=== PATIENT | female | born 1945 | race Caucasian/White ===

== ENCOUNTER 2018-07-01 12:35 | Observation (INO) ==
--- NOTE | 2018-07-01 13:37 | Emergency Department Note ---
Disposition Clinical Impression: Weakness, Gangrene Disposition: Admitted As Inpatient Condition: Undetermined Referrals: Brody Gorman DO [Primary Care Provider] - Forms: ED Satisfaction Letter Time of Disposition: 17:14 General Adult HPI - General Chief complaint: ED Extremity Injury, Lower Stated complaint: bilat leg pain, L foot swelling/discoloration Time Seen by Provider: 07/01/18 13:06 Source: patient Mode of arrival: wheelchair Limitations: no limitations Nursing Notes Reviewed: Yes Vital Signs Reviewed: Yes - History of Present Illness HPI Narrative: 73-year-old female arrives to the emergency department with generalized weakness, bilateral lower extremity pain and left lower extremity discoloration. The patient has been complaining of pain all over over the course of the past few weeks and unable to care for herself at home with family. Family is having difficult time taking care of her as been unable to care for her to the point where they brought her in for evaluation. This morning the patient started experiencing discoloration of her left foot and turned purple in color. The patient does have palpable pulses in bilateral feet and dorsalis pedis but they are weak on the left and 1 over 2 whereas the right is 2 over 2. Patient still has capillary refill. Patient was being treated for cancer in the lungs where she finished her last chemotherapy roughly 4 weeks ago. She has not had a follow-up appointment since then. No noted fevers or chills. Patient denies any other complaints at this time. Patient continues to smoke at home and at apparently is the only time that she gets out of her chair. Pain Scale: 8 - Related Data Home Medications Medication Instructions Recorded Confirmed HYDROcodone/Acet 5/325 mg mg PO TID 03/08/18 Allergies Allergy/AdvReac Type Severity Reaction Status Date / Time No Known Allergies Allergy Verified 03/08/18 10:03 All systems ED: reviewed and negative except as stated. Constitutional: Reports: weakness. Denies: fever, chills Eyes: Denies: vision change ENT ED: Denies: dysphagia Cardiovascular: Denies: chest pain Respiratory: Reports: cough. Denies: dyspnea, sputum production Gastrointestinal: Denies: abdominal pain, nausea, vomiting Genitourinary: Denies: urgency, dysuria Musculoskeletal: Reports: myalgia. Denies: back pain, neck pain, arthralgia Integumentary: Reports: lesions. Denies: rash Neurological: Reports: weakness. Denies: headache, numbness, paresthesias, confusion Past Medical History - Past Medical History Attestation: Yes The following information was validated with the patient. Source: patient, old records reviewed Medical history: Reports: arthritis, cancer, diabetes, hyperlipidemia, osteoporosis Surgical history: Reports: cholecystectomy Psychiatric history: Reports: no psych history - Social History Smoking Status: Current every day smoker Smokeless Tobacco Status: No Alcohol use: Reports: none Drug use: Reports: none Physical Exam - General Limitations: no limitations General appearance: alert, in no apparent distress - Head Head exam: atraumatic, normocephalic, normal inspection - Eye Eye exam: Present: normal appearance, PERRL, EOMI - ENT ENT exam: normal exam, normal oropharynx, mucous membranes moist - Neck Neck exam: Present: normal inspection, full ROM, trachea midline - Chest Chest inspection: Present: normal inspection, symmetric chest wall rise - Respiratory Respiratory exam: Present: other (coarse breath sounds) - Cardiovascular Cardiovascular exam: Present: regular rate, normal rhythm, normal heart sounds - Abdominal Exam Abdominal exam: Present: soft, Non-Tender. Absent: tenderness, distention, guarding, rebound, rigidity - Extremities Exam Extremities exam: Present: full ROM, tenderness (left foot primarily but radiating proximally to left politeal region) - Expanded Lower Extremity Exam Foot/toe exam: Present: other (Patient appears to have wet gangrene/ulceration to left fifth toe. In between fifth and fourth toes. There is some purulent discharge and is in this area as well with a black discoloration on the medial aspect of this. Capillary refill less than 2 seconds. Overall purple discoloration to the left foot when compared to the right) - Neurological Exam Neurological exam: Present: alert, oriented X3, CN II-XII intact - Expanded Neurological Exam Patient oriented to: Present: person, place, time Speech: Present: fluid speech Cranial nerves: EOM function (II, III, IV, ): Normal, facial sensation (V): Normal, facial palsy (VII): Normal Motor strength - LUE: 4/5 Motor strength - RUE: 4/5 Motor strength - LLE: 3/5 Motor strength - RLE: 3/5 Sensory exam upper extremity: light touch: Normal Sensory exam lower extremity: light touch: Normal Coma Scale Eye Opening: Spontaneous Coma Scale Motor Response: Obeys Commands Coma Scale Verbal Response: Oriented Coma Scale Total: 15 - Skin Skin exam: Present: warm Course Vital Signs Temperature 97.9 F 07/01/18 12:45 Pulse Rate 90 07/01/18 12:45 Respiratory Rate 14 07/01/18 12:45 Blood Pressure 149/80 07/01/18 12:45 O2 Sat by Pulse Oximetry 92 07/01/18 12:45 Temperature 97.9 F 07/01/18 12:45 Pulse Rate 75 07/01/18 16:47 Respiratory Rate 18 07/01/18 16:47 Blood Pressure 135/62 07/01/18 16:47 O2 Sat by Pulse Oximetry 91 07/01/18 16:47 Oxygen Delivery Oxygen Delivery Room Air Medical Decision Making - MDM Narrative Medical decision making narrative: Patient's workup in the emergency department demonstrates findings concerning for mucous plugging of the lungs. Mass within the lung has decreased in size since patient received chemotherapy. Patient was also noted to have what germán ears to be possible gangrene of the left fifth toe. This appears discharge in this area and discoloration. The patient was started on vancomycin and Zosyn secondary to signs of infection. The patient had ABIs which demonstrated no acute process but the patient does have reduced disease at 0.85 and 0.80 respectively. Patient was also noted to have no DVTs of bilateral lower extremities. CTA of the patient's chest shows no embolic disease. The patient will be admitted to the hospital this time for further evaluation. Accepted by Dr. Marks. - Lab Data Lab results reviewed: Yes I reviewed the patient's lab results. Result diagrams: 07/01/18 13:57 07/01/18 13:57 Lab Results 07/01/18 07/01/18 07/01/18 Range/Units 13:50 13:57 13:57 WBC 6.4 (4.3-11.1) K/mcL RBC 3.96 (3.82-4.97) M/mcL Hgb 10.5 L (11.5-15.4) g/dL Hct 34.1 L (35.3-44.9) % MCV 86.1 (83.0-100.0) fL MCH 26.5 L (28.0-33.3) pg MCHC 30.8 L (31.6-35.5) g/dL RDW 17.6 H (11.5-14.5) % Plt Count 344 (140-400) K/mcL MPV 9.0 L (9.4-12.4) fL Immature Gran % 0.3 (0-4) % Seg Neutrophils % 75.7 % Lymphocytes % 12.0 % Monocytes % 8.9 % Eosinophils % 2.2 % Basophils % 0.9 % Neutrophils # 4.9 (1.6-8.9) K/mcL Lymphocytes # 0.8 (0.6-4.6) K/mcL Monocytes # 0.6 (0.0-1.3) K/mcL Eosinophils # 0.1 (0.0-0.6) K/mcL Basophils # 0.1 (0.0-0.2) K/mcL D-Dimer (0-500) ng/mLFEU Sodium 131 L (136-145) mEq/L Potassium 4.8 (3.5-5.1) mEq/L Chloride 99 (98-107) mEq/L Carbon Dioxide 26 (23-29) mEq/L BUN 13 (8-23) mg/dL Creatinine 0.56 L (0.60-1.20) mg/dL Est GFR ( Amer) > 60 (> 60) Est GFR (Non-Af Amer) > 60 (> 60) BUN/Creatinine Ratio 23 (6-26) Glucose 101 (70-105) mg/dL Calculated Osmolality 272 L (280-300) Lactic Acid 0.8 (0.5-2.2) mmol/L Calcium 9.3 (8.6-10.3) mg/dL Total Bilirubin 0.4 (0.3-1.0) mg/dL Direct Bilirubin 0.1 (0.0-0.2) mg/dL Indirect Bilirubin 0.3 (0.0-1.2) mg/dL AST 15 (13-39) Units/L ALT 9 (7-52) Units/L Alkaline Phosphatase 68 (34-104) Units/L Troponin I < 0.03 (< 0.04) ng/mL Serum Total Protein 7.0 (6.4-8.9) g/dL Albumin 3.9 (3.5-5.7) g/dL Globulin 3.1 (2.4-3.5) g/dL Albumin/Globulin Ratio 1.3 (1.1-2.2) Urine Color (Yellow) Urine Clarity (Clear) Urine pH (5.0-8.0) pH Units Ur Specific [place] (1.010-1.025) Urine Protein (Neg-Trace) mg/dL Urine Glucose (UA) (Normal) mg/dL Urine Ketones (Negative) mg/dL Urine Blood (Negative) Urine Nitrite (Negative) Urine Bilirubin (Negative) Urine Urobilinogen (Normal) mg/dL Ur Leukocyte Esterase (Negative) Urine Microscopic RBC (0-3) per hpf Urine Microscopic WBC (0-3) per hpf Ur Squamous Epith Cells (None-Few) per lpf Urine Bacteria (None-Few) per hpf Hyaline Casts (None-Few) per lpf Ur Culture Indicated? (NO) 07/01/18 07/01/18 Range/Units 13:57 16:51 WBC (4.3-11.1) K/mcL RBC (3.82-4.97) M/mcL Hgb (11.5-15.4) g/dL Hct (35.3-44.9) % MCV (83.0-100.0) fL MCH (28.0-33.3) pg MCHC (31.6-35.5) g/dL RDW (11.5-14.5) % Plt Count (140-400) K/mcL MPV (9.4-12.4) fL Immature Gran % (0-4) % Seg Neutrophils % % Lymphocytes % % Monocytes % % Eosinophils % % Basophils % % Neutrophils # (1.6-8.9) K/mcL Lymphocytes # (0.6-4.6) K/mcL Monocytes # (0.0-1.3) K/mcL Eosinophils # (0.0-0.6) K/mcL Basophils # (0.0-0.2) K/mcL D-Dimer 1276 H (0-500) ng/mLFEU Sodium (136-145) mEq/L Potassium (3.5-5.1) mEq/L Chloride (98-107) mEq/L Carbon Dioxide (23-29) mEq/L BUN (8-23) mg/dL Creatinine (0.60-1.20) mg/dL Est GFR ( Amer) (> 60) Est GFR (Non-Af Amer) (> 60) BUN/Creatinine Ratio (6-26) Glucose (70-105) mg/dL Calculated Osmolality (280-300) Lactic Acid (0.5-2.2) mmol/L Calcium (8.6-10.3) mg/dL Total Bilirubin (0.3-1.0) mg/dL Direct Bilirubin (0.0-0.2) mg/dL Indirect Bilirubin (0.0-1.2) mg/dL AST (13-39) Units/L ALT (7-52) Units/L Alkaline Phosphatase (34-104) Units/L Troponin I (< 0.04) ng/mL Serum Total Protein (6.4-8.9) g/dL Albumin (3.5-5.7) g/dL Globulin (2.4-3.5) g/dL Albumin/Globulin Ratio (1.1-2.2) Urine Color Yellow (Yellow) Urine Clarity Clear (Clear) Urine pH 6.5 (5.0-8.0) pH Units Ur Specific [place] 1.028 H (1.010-1.025) Urine Protein Negative (Neg-Trace) mg/dL Urine Glucose (UA) Normal (Normal) mg/dL Urine Ketones Negative (Negative) mg/dL Urine Blood Negative (Negative) Urine Nitrite Negative (Negative) Urine Bilirubin Negative (Negative) Urine Urobilinogen Normal (Normal) mg/dL Ur Leukocyte Esterase Moderate H (Negative) Urine Microscopic RBC 0-3 (0-3) per hpf Urine Microscopic WBC 15-30 H (0-3) per hpf Ur Squamous Epith Cells Many H (None-Few) per lpf Urine Bacteria None Seen (None-Few) per hpf Hyaline Casts None Seen (None-Few) per lpf Ur Culture Indicated? NO. A (NO) - Radiology Data Radiology results reviewed: Yes I reviewed the patient's radiology results. Chest X-Ray 07/01/18 13:19 IMPRESSION: The left upper lobe mass has decreased in size since the prior exam. No evidence of edema or pneumonia. D/ / 07/01/2018 14:10:45 Erick Gutierrez MD / Jeana Mendoza Interpreting Provider: Erick Gutierrez MD Chest CTA 07/01/18 14:37 IMPRESSION: 1. Negative for pulmonary embolic disease. 2. The left upper lobe nodule has decreased in size since the PET-CT. 3. Increased right middle and lower lobe mucous plugging. 4. Progressed compression deformities at T12 and L1. D/ / 07/01/2018 16:43:49 Erick Gutierrez MD / windy Interpreting Provider: Erick Gutierrez MD - EKG Data EKG #1 EKG attestation: Yes I reviewed and interpreted this EKG. EKG results narrative: Heart rate 79 beats for minute. Normal sinus rhythm. No ST elevation or ST depression noted. No acute changes noted.
[2018-07-01 14:16] LABS: Basophils # 0.1 K/mcL (0.0-0.2); Basophils % 0.9 %; Eosinophils # 0.1 K/mcL (0.0-0.6); Eosinophils % 2.2 %; Hematocrit 34.1 % (35.3-44.9); Hemoglobin 10.5 g/dL (11.5-15.4); Immature Granulocytes % 0.3 % (0-4); Lymphocytes # 0.8 K/mcL (0.6-4.6); Mean Corpuscular HGB Conc 30.8 g/dL (31.6-35.5); Mean Corpuscular Hemoglobin 26.5 pg (28.0-33.3); Mean Corpuscular Volume 86.1 fL (83.0-100.0); Monocytes # 0.6 K/mcL (0.0-1.3); Monocytes % 8.9 %; Neutrophils # 4.9 K/mcL (1.6-8.9); Platelet Count 344 K/mcL (140-400); Red Blood Count 3.96 M/mcL (3.82-4.97); Red Cell Distribution Width 17.6 % (11.5-14.5); Segmented Neutrophils % 75.7 %
[2018-07-01 14:33] LABS: Troponin I < 0.03 ng/mL (< 0.04)
[2018-07-01 14:34] LABS: Alanine Aminotransferase 9 Units/L (7-52); Albumin 3.9 g/dL (3.5-5.7); Albumin/Globulin Ratio 1.3 (1.1-2.2); Alkaline Phosphatase 68 Units/L (34-104); Aspartate Amino Transferase 15 Units/L (13-39); BUN/Creatinine Ratio 23 (6-26); Bilirubin,Direct 0.1 mg/dL (0.0-0.2); Bilirubin,Indirect 0.3 mg/dL (0.0-1.2); Bilirubin,Total 0.4 mg/dL (0.3-1.0); Blood Urea Nitrogen 13 mg/dL (8-23); Calcium 9.3 mg/dL (8.6-10.3); Carbon Dioxide 26 mEq/L (23-29); Chloride 99 mEq/L (98-107); Globulin 3.1 g/dL (2.4-3.5); Glucose 101 mg/dL (70-105); Osmolality,Calculated 272 (280-300); Potassium 4.8 mEq/L (3.5-5.1); Sodium 131 mEq/L (136-145); eGFR For Non-African Americans > 60 (> 60)
[2018-07-01] MEDS ORDERED: Isovue-370 500 ML BOTTLE IVP ONE (14:37)
[2018-07-01] MEDS ORDERED: 0.9 % Sodium Chloride 1,000 ML IVC ONE (14:37)
[2018-07-01] MEDS ORDERED: Cefepime HCl 1,000 MG in Water for inj. (sterile) 20 ML 10 ML IVP STA (16:01)
[2018-07-01 17:00] LABS: Bilirubin,Urine Negative (Negative); Blood,Urine Negative (Negative); Clarity,Urine Clear (Clear); Color,Urine Yellow (Yellow); Glucose,Urine (UA) Normal (Normal); Ketones,Urine Negative (Negative); Leukocyte Esterase,Urine Moderate (Negative); Nitrite,Urine Negative (Negative); PH,Urine 6.5 pH Units (5.0-8.0); Protein,Urine Negative (Neg-Trace); Specific Gravity,Urine 1.028 (1.010-1.025); Urobilinogen,Urine Normal (Normal)
[2018-07-01 17:01] LABS: Bacteria,Urine None Seen per hpf (None-Few); Hyaline Casts,Urine None Seen per lpf (None-Few); RBC,Urine 0-3 per hpf (0-3); Squamous Epithelial Cell,Urine Many per lpf (None-Few); WBC,Urine 15-30 per hpf (0-3)
--- NOTE | 2018-07-01 17:08 | Emergency Department Note ---
Disposition Clinical Impression: Weakness, Gangrene Disposition: Admitted As Inpatient Condition: Good Referrals: Brody Gorman DO [Primary Care Provider] - Forms: ED Satisfaction Letter General Adult HPI - General Chief complaint: ED Extremity Injury, Lower Stated complaint: bilat leg pain, L foot swelling/discoloration Time Seen by Provider: 07/01/18 13:06 Source: patient Mode of arrival: wheelchair Limitations: no limitations - History of Present Illness Pain Scale: 8 - Related Data Home Medications Medication Instructions Recorded Confirmed HYDROcodone/Acet 5/325 mg mg PO TID 03/08/18 Allergies Allergy/AdvReac Type Severity Reaction Status Date / Time No Known Allergies Allergy Verified 03/08/18 10:03 Constitutional: Reports: weakness. Denies: fever, chills Eyes: Denies: vision change ENT ED: Denies: dysphagia Cardiovascular: Denies: chest pain Respiratory: Reports: cough. Denies: dyspnea, sputum production Gastrointestinal: Denies: abdominal pain, nausea, vomiting Genitourinary: Denies: urgency, dysuria Musculoskeletal: Reports: myalgia. Denies: back pain, neck pain, arthralgia Integumentary: Reports: lesions. Denies: rash Neurological: Reports: weakness. Denies: headache, numbness, paresthesias, confusion Past Medical History - Past Medical History Medical history: Reports: arthritis, cancer, diabetes, hyperlipidemia, osteoporosis Surgical history: Reports: cholecystectomy Psychiatric history: Reports: no psych history - Social History Smoking Status: Current every day smoker Smokeless Tobacco Status: No Alcohol use: Reports: none Drug use: Reports: none Physical Exam - General Limitations: no limitations General appearance: alert, in no apparent distress Course Vital Signs Temperature 97.9 F 07/01/18 12:45 Pulse Rate 90 07/01/18 12:45 Respiratory Rate 14 07/01/18 12:45 Blood Pressure 149/80 07/01/18 12:45 O2 Sat by Pulse Oximetry 92 07/01/18 12:45 Temperature 97.9 F 07/01/18 12:45 Pulse Rate 75 07/01/18 16:47 Respiratory Rate 18 07/01/18 16:47 Blood Pressure 135/62 07/01/18 16:47 O2 Sat by Pulse Oximetry 91 07/01/18 16:47 Oxygen Delivery Oxygen Delivery Room Air Medical Decision Making - Lab Data Result diagrams: 07/01/18 13:57 02/17/19 13:57 Lab Results 07/01/18 07/01/18 07/01/18 Range/Units 13:50 13:57 13:57 WBC 6.4 (4.3-11.1) K/mcL RBC 3.96 (3.82-4.97) M/mcL Hgb 10.5 L (11.5-15.4) g/dL Hct 34.1 L (35.3-44.9) % MCV 86.1 (83.0-100.0) fL MCH 26.5 L (28.0-33.3) pg MCHC 30.8 L (31.6-35.5) g/dL RDW 17.6 H (11.5-14.5) % Plt Count 344 (140-400) K/mcL MPV 9.0 L (9.4-12.4) fL Immature Gran % 0.3 (0-4) % Seg Neutrophils % 75.7 % Lymphocytes % 12.0 % Monocytes % 8.9 % Eosinophils % 2.2 % Basophils % 0.9 % Neutrophils # 4.9 (1.6-8.9) K/mcL Lymphocytes # 0.8 (0.6-4.6) K/mcL Monocytes # 0.6 (0.0-1.3) K/mcL Eosinophils # 0.1 (0.0-0.6) K/mcL Basophils # 0.1 (0.0-0.2) K/mcL D-Dimer (0-500) ng/mLFEU Sodium 131 L (136-145) mEq/L Potassium 4.8 (3.5-5.1) mEq/L Chloride 99 (98-107) mEq/L Carbon Dioxide 26 (23-29) mEq/L BUN 13 (8-23) mg/dL Creatinine 0.56 L (0.60-1.20) mg/dL Est GFR ( Amer) > 60 (> 60) Est GFR (Non-Af Amer) > 60 (> 60) BUN/Creatinine Ratio 23 (6-26) Glucose 101 (70-105) mg/dL Calculated Osmolality 272 L (280-300) Lactic Acid 0.8 (0.5-2.2) mmol/L Calcium 9.3 (8.6-10.3) mg/dL Total Bilirubin 0.4 (0.3-1.0) mg/dL Direct Bilirubin 0.1 (0.0-0.2) mg/dL Indirect Bilirubin 0.3 (0.0-1.2) mg/dL AST 15 (13-39) Units/L ALT 9 (7-52) Units/L Alkaline Phosphatase 68 (34-104) Units/L Troponin I < 0.03 (< 0.04) ng/mL Serum Total Protein 7.0 (6.4-8.9) g/dL Albumin 3.9 (3.5-5.7) g/dL Globulin 3.1 (2.4-3.5) g/dL Albumin/Globulin Ratio 1.3 (1.1-2.2) 07/01/18 Range/Units 13:57 WBC (4.3-11.1) K/mcL RBC (3.82-4.97) M/mcL Hgb (11.5-15.4) g/dL Hct (35.3-44.9) % MCV (83.0-100.0) fL MCH (28.0-33.3) pg MCHC (31.6-35.5) g/dL RDW (11.5-14.5) % Plt Count (140-400) K/mcL MPV (9.4-12.4) fL Immature Gran % (0-4) % Seg Neutrophils % % Lymphocytes % % Monocytes % % Eosinophils % % Basophils % % Neutrophils # (1.6-8.9) K/mcL Lymphocytes # (0.6-4.6) K/mcL Monocytes # (0.0-1.3) K/mcL Eosinophils # (0.0-0.6) K/mcL Basophils # (0.0-0.2) K/mcL D-Dimer 1276 H (0-500) ng/mLFEU Sodium (136-145) mEq/L Potassium (3.5-5.1) mEq/L Chloride (98-107) mEq/L Carbon Dioxide (23-29) mEq/L BUN (8-23) mg/dL Creatinine (0.60-1.20) mg/dL Est GFR ( Amer) (> 60) Est GFR (Non-Af Amer) (> 60) BUN/Creatinine Ratio (6-26) Glucose (70-105) mg/dL Calculated Osmolality (280-300) Lactic Acid (0.5-2.2) mmol/L Calcium (8.6-10.3) mg/dL Total Bilirubin (0.3-1.0) mg/dL Direct Bilirubin (0.0-0.2) mg/dL Indirect Bilirubin (0.0-1.2) mg/dL AST (13-39) Units/L ALT (7-52) Units/L Alkaline Phosphatase (34-104) Units/L Troponin I (< 0.04) ng/mL Serum Total Protein (6.4-8.9) g/dL Albumin (3.5-5.7) g/dL Globulin (2.4-3.5) g/dL Albumin/Globulin Ratio (1.1-2.2) Attestation Statement - Attestation Attestation: I examined this patient and my medical decision-making was reviewed with the Resident Physician. I agree with the documented findings, disposition and treatment plan as described except to the extent set forth below. 73 year old female presents to the ED with complaints of weakness and bilateral leg swelling with history of lung cancer. Patinet DVT/CTA negative for DVT/PE and it appers she may have some poor feet hygiene and elements of wet ce llulitis. Patinet also as mucus pluggings around her lung cancer. Patinet will be aditted to medicine for weaknss, and cellulitis, mucus pluggings.
[2018-07-01] MEDS ORDERED: Naloxone 0.4 MG/ML INJ IVP PRN (17:22)
[2018-07-01] MEDS ORDERED: Ondansetron 4 MG/2 ML VIAL IVP PRN (17:22)
[2018-07-01] MEDS ORDERED: Albuterol 2.5 MG/3 ML NEBULIZER IH PRN (17:24)
--- NOTE | 2018-07-01 17:52 | Internal Med History&Physical ---
Date of Encounter: 07/01/18 Time of Encounter: 17:35 Internal Medicine - H&P: HPI Chief complaint: leg weakness/pain, inability to ambulate Admitted From: Home History of present illness: Ms. 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 Pt denied any focal complaints initially but later admitted that she did not want to walk because she experiences sharp L foot/leg pain upon walking. Relieved when resting in bed. Denies any chest pain, shortness of breath, cough, sputum production, fever/chills, leg weakness/numbness, or blackened toe. No abdominal pain, nausea/vomiting, change in bowel habits, or dysuria. She had completed radiotherapy back in April 2018. She continues to smoke about a pack a day and does not have any desire to quit. In the ED, she was afebrile and hemodynamically stable. Labs showed normal white blood cell count, hemoglobin 10.5 which is at her baseline, and normal electrolytes. Lactic acid normal. D-dimer was elevated and had CTA done which did not show any PNA/PE but did show mucus plugging in right middle lobe and lower lobe. Left upper lobe nodule decreased in size. She was given Vanc /cefepime for the concern of L 5th toe gangrene and admitted for further management. Past Med Surg Social Fam HX - Past Medical History Attestation: Yes The following information was validated with the patient. Medical history: arthritis, cancer, diabetes, hyperlipidemia, osteoporosis Additional medical history: lung cancer Psychiatric history: no psych history - Past Surgical History Surgical History: cholecystectomy - Social History Smoking Status: Current every day smoker Smokeless Tobacco Status: No Alcohol use: none Drug use: none - Additional Family History Additional family history: Reviewed and noncontributory Internal Medicine - H&P: Meds HYDROcodone/Acet 5/325 mg mg PO TID 03/08/18 [History] Allergy/AdvReac Type Severity Reaction Status Date / Time No Known Allergies Allergy Verified 03/08/18 10:03 All Systems PM: A 10-system review of systems was performed and is negative for pertinent findings except as documented above in the HPI. - Constitutional Vitals: Temp Pulse Resp BP Pulse Ox 97.9 F 75 18 135/62 91 07/01/18 12:45 07/01/18 16:47 07/01/18 16:47 07/01/18 16:47 07/01/18 16:47 Exam: General: Alert and oriented, not in acute distress. HEENT:EOMI, pupils equal, round and reactive. Cardiovascular:Normal S1 & S2, No JVD. Pulse regular. Lungs: Diminished breath sound in the right lung field without obvious wheezes or rhonchi Abdomen:Soft, non-tender, no rigidity. 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 Intact power in both LEs. Left fifth toe on the medial aspect with few scabs and mildly tender with passive motion but no obvious redness/discharges noted. Neurological:Normal cognition and motor skills. Non-focal Skin:Normal color, no rash, no lesions. Psych: Cooperative, appropriate Rest of the physical exam is non contributory Internal Med - H&P Results - Labs CBC & Chem 7: 07/01/18 13:57 07/01/18 13:57 Labs: Short CBC 07/01/18 Range/Units 13:57 WBC 6.4 (4.3-11.1) K/mcL Hgb 10.5 L (11.5-15.4) g/dL Hct 34.1 L (35.3-44.9) % Plt Count 344 (140-400) K/mcL Neutrophils # 4.9 (1.6-8.9) K/mcL BMP 07/01/18 13:57 Sodium 131 L Potassium 4.8 Chloride 99 Carbon Dioxide 26 BUN 13 Creatinine 0.56 L Glucose 101 Calcium 9.3 Cardiac Enzymes 07/01/18 Range/Units 13:57 Troponin I < 0.03 (< 0.04) ng/mL Liver Function 07/01/18 Range/Units 13:57 Total Bilirubin 0.4 (0.3-1.0) mg/dL Direct Bilirubin 0.1 (0.0-0.2) mg/dL AST 15 (13-39) Units/L ALT 9 (7-52) Units/L Alkaline Phosphatase 68 (34-104) Units/L Albumin 3.9 (3.5-5.7) g/dL Urine 07/01/18 Range/Units 16:51 Urine Color Yellow (Yellow) Urine Clarity Clear (Clear) Urine pH 6.5 (5.0-8.0) pH Units Ur Specific [place] 1.028 H (1.010-1.025) Urine Protein Negative (Neg-Trace) mg/dL Urine Glucose (UA) Normal (Normal) mg/dL - Impressions ITS Impressions Chest X-Ray 07/01/18 13:19 IMPRESSION: The left upper lobe mass has decreased in size since the prior exam. No evidence of edema or pneumonia. D/ / 07/01/2018 14:10:45 Erick Gutierrez MD / Jeana Mendoza Interpreting Provider: Erick Gutierrez MD Chest CTA 07/01/18 14:37 IMPRESSION: 1. Negative for pulmonary embolic disease. 2. The left upper lobe nodule has decreased in size since the PET-CT. 3. Increased right middle and lower lobe mucous plugging. 4. Progressed compression deformities at T12 and L1. D/ / 07/01/2018 16:43:49 Erick Gutierrez MD / windy Interpreting Provider: Erick Gutierrez MD - Assessment and plan (1) PAD (peripheral artery disease) Current Visit: Yes Status: Chronic Assessment and plan: active smoker, presented with what appears to be claudication YINKA showed right PT- 0.79 AND DP- 0.85 and left PT- 0.76 and DP- 0.87, consistent with PAD not impressive with possible gangrene of L 5th toe. Was given IV Vanc/cefepime in the ED, will monitor off abx start ASA, continue statin check L toe XR would consider podiatry/vascular surgery consult tomorrow (2) COPD (chronic obstructive pulmonary disease) Current Visit: Yes Status: Chronic Assessment and plan: History of COPD with active tobacco use Does not appear to be in exacerbation although CT imaging showed mucus plugging in right middle and lower lobe scheduled bronchodilators, chest PT monitor off steroid and abx smoking cessation emphasized, pt is not interested Qualifiers: COPD type: unspecified COPD Qualified Code(s): J44.9 - Chronic obstructive pulmonary disease, unspecified (3) Lung cancer Current Visit: Yes Status: Chronic Assessment and plan: s/p radiotherapy, nodule has decreased in size since then outpatient follow up Qualifiers: Laterality: left Lung location: upper lobe of lung Qualified Code(s): C34.12 - Malignant neoplasm of upper lobe, left bronchus or lung (4) Diabetes Current Visit: Yes Status: Chronic Assessment and plan: On metformin at home. Hold Sliding scale coverage ADA diet Qualifiers: Diabetes mellitus type: type 2 Diabetes mellitus human resource officer insulin use: without human resource officer use Diabetes mellitus complication status: with unspecified complications Qualified Code(s): E11.8 - Type 2 diabetes mellitus with unspecified complications (5) HLD (hyperlipidemia) Current Visit: Yes Status: Chronic Assessment and plan: continue statin Qualifiers: Hyperlipidemia type: unspecified Qualified Code(s): E78.5 - Hyperlipidemia, unspecified (6) DVT prophylaxis Current Visit: Yes Status: Acute Assessment and plan: SQ Hep - Time Spent With Patient Total time spent is greater than 50% in coordination of care (as documented) at patient's floor/unit and/or counseling patient: Greater than 35 minutes
[2018-07-01] MEDS ORDERED: Dextrose Gel 15 GM/37.5 ML TUBE PO PRN ×2 (17:55)
[2018-07-01] MEDS ORDERED: *HR* Dextrose 50 % in Water (Syg) 50 ML SYRINGE IVP PRN (17:55)
[2018-07-01] MEDS ORDERED: Dextrose 4 GM Chewable Tablets PO PRN ×2 (17:55)
[2018-07-01] MEDS ORDERED: D5% in Water 1,000 ML IVC PRN (17:55)
[2018-07-01] MEDS: Ringers Solution, Lactated 1,000 ML IVC SCH (19:55)
[2018-07-01] MEDS: *HR* Heparin 5,000 UNIT/ML VIAL SQ SCH (19:55)
[2018-07-01] MEDS: Ipratropium/Albuterol Neb 3 ML IH SCH (20:43)
[2018-07-01] MEDS: Insulin LISPRO 300 UNITS/3 ML VIAL SQ SCH (21:18)
[2018-07-01] MEDS: *HR* HYDROcodone/Acet 5/325 mg TABLET PO SCH (21:19)
[2018-07-02] MEDS: Ipratropium/Albuterol Neb 3 ML IH SCH ×7 (00:51→23:49)
[2018-07-02] MEDS: *HR* Heparin 5,000 UNIT/ML VIAL SQ SCH ×2 (05:24→17:09)
[2018-07-02 06:19] LABS: Basophils % 0.4 %; Eosinophils # 0.1 K/mcL (0.0-0.6); Eosinophils % 1.2 %; Hematocrit 28.1 % (35.3-44.9); Hemoglobin 8.9 g/dL (11.5-15.4); Immature Granulocytes % 0.4 % (0-4); Lymphocytes # 0.9 K/mcL (0.6-4.6); Lymphocytes % 10.8 %; Mean Corpuscular HGB Conc 31.7 g/dL (31.6-35.5); Mean Corpuscular Volume 85.2 fL (83.0-100.0); Mean Platelet Volume 9.7 fL (9.4-12.4); Monocytes # 0.7 K/mcL (0.0-1.3); Monocytes % 9.2 %; Neutrophils # 6.3 K/mcL (1.6-8.9); Platelet Count 298 K/mcL (140-400); Red Cell Distribution Width 17.7 % (11.5-14.5)
[2018-07-02 06:30] LABS: Prothrombin Time 10.7 Seconds (9.4-12.1)
[2018-07-02 06:36] LABS: BUN/Creatinine Ratio 24 (6-26); Blood Urea Nitrogen 11 mg/dL (8-23); Calcium 8.6 mg/dL (8.6-10.3); Carbon Dioxide 22 mEq/L (23-29); Chloride 105 mEq/L (98-107); Glucose 103 mg/dL (70-105); Osmolality,Calculated 280 (280-300); Potassium 3.7 mEq/L (3.5-5.1); Sodium 135 mEq/L (136-145); eGFR For Non-African Americans > 60 (> 60)
[2018-07-02] MEDS: Insulin LISPRO 300 UNITS/3 ML VIAL SQ SCH ×4 (08:32→21:47)
[2018-07-02] MEDS: *HR* HYDROcodone/Acet 5/325 mg TABLET PO SCH ×3 (08:33→21:49)
[2018-07-02] MEDS: Ringers Solution, Lactated 1,000 ML IVC SCH (08:34)
[2018-07-02] MEDS ORDERED: (Fluticasone/Vilanterol [Breo Ellipta 100-25 Mcg Inh] IH SCH (09:00)
--- NOTE | 2018-07-02 10:21 | Internal Med Progress Note ---
Hospitalist Progress Note - Encounter Date of Encounter: 07/02/18 Time of Encounter: 09:15 - Subjective Interval History: X-ray report reviewed; possible small focus of gas gangrene along the lateral margin of the proximal left fifth toe. No fever/chills or nausea/vomiting overnight. Denies any worsening pain over the left 5th toe - Exam Vitals: Temp Pulse Resp BP Pulse Ox 97.8 F 94 15 103/58 90 07/02/18 07:02 07/02/18 07:02 07/02/18 07:02 07/02/18 07:02 07/02/18 07:02 Exam: General: Alert and oriented, not in acute distress. Cardiovascular:Normal S1 & S2, No JVD. Pulse regular. Lungs: Diminished breath sound in the right lung field without obvious wheezes or rhonchi Abdomen:Soft, non-tender, no rigidity. Extremities: BOth feet cool to touch, CREELER ~ 3 secs. Intact power in both LEs. Left fifth toe on the medial aspect with few scabs and mildly tender with passive motion but no obvious redness/discharges noted. Neurological:Normal cognition and motor skills. Non-focal - Assessment and Plan (1) Gangrene Current Visit: Yes Status: Acute Assessment and Plan: XR shows ?possible gas gangrene of L 5th toe pt is not septic, no fever/chills, no leukocytosis, or no hemodynamic instability podiatry consult, discussed over the phone will keep her NPO in case she needs further intervention (2) PAD (peripheral artery disease) Current Visit: Yes Status: Chronic Assessment and Plan: active smoker, presented with what appears to be claudication YINKA showed right PT- 0.79 AND DP- 0.85 and left PT- 0.76 and DP- 0.87, consistent with PAD XR report as above Was given IV Vanc/cefepime in the ED, will monitor off abx. Podiatry evaluation pending start ASA, continue statin (3) COPD (chronic obstructive pulmonary disease) Current Visit: Yes Status: Chronic Assessment and Plan: History of COPD with active tobacco use Does not appear to be in exacerbation although CT imaging showed mucus plugging in right middle and lower lobe Continue scheduled bronchodilators, chest PT monitor off steroid and abx smoking cessation emphasized, pt is not interested (4) Lung cancer Current Visit: Yes Status: Chronic Assessment and Plan: s/p radiotherapy, nodule has decreased in size since then outpatient follow up (5) Diabetes Current Visit: Yes Status: Chronic Assessment and Plan: On metformin at home. Hold Sliding scale coverage ADA diet (6) HLD (hyperlipidemia) Current Visit: Yes Status: Chronic Assessment and Plan: continue statin (7) DVT prophylaxis Current Visit: Yes Status: Acute Assessment and Plan: SQ Hep - Time Spent with Patient Total time spent is greater than 50% in coordination of care (as documented) at patient's floor/unit and/or counseling patient: Plan of Care Discussed with: patient (discussed with podiatry and RN) Internal Medicine: Result - Labs CBC & Chem 7: 07/02/18 05:34 07/02/18 05:34 Labs: Short CBC 07/01/18 07/02/18 Range/Units 13:57 05:34 WBC 6.4 8.0 (4.3-11.1) K/mcL Hgb 10.5 L 8.9 L D (11.5-15.4) g/dL Hct 34.1 L 28.1 L (35.3-44.9) % Plt Count 344 298 (140-400) K/mcL Neutrophils # 4.9 6.3 (1.6-8.9) K/mcL BMP 07/01/18 07/02/18 13:57 05:34 Sodium 131 L 135 L Potassium 4.8 3.7 Chloride 99 105 Carbon Dioxide 26 22 L BUN 13 11 Creatinine 0.56 L 0.45 L Glucose 101 103 Calcium 9.3 8.6 Cardiac Enzymes 07/01/18 Range/Units 13:57 Troponin I < 0.03 (< 0.04) ng/mL Liver Function 07/01/18 Range/Units 13:57 Total Bilirubin 0.4 (0.3-1.0) mg/dL Direct Bilirubin 0.1 (0.0-0.2) mg/dL AST 15 (13-39) Units/L ALT 9 (7-52) Units/L Alkaline Phosphatase 68 (34-104) Units/L Albumin 3.9 (3.5-5.7) g/dL Urine 07/01/18 Range/Units 16:51 Urine Color Yellow (Yellow) Urine Clarity Clear (Clear) Urine pH 6.5 (5.0-8.0) pH Units Ur Specific [place] 1.028 H (1.010-1.025) Urine Protein Negative (Neg-Trace) mg/dL Urine Glucose (UA) Normal (Normal) mg/dL - ABG Interpretation ABG results: PT/INR, D-dimer PT 10.7 Seconds (9.4-12.1) 07/02/18 05:34 D-Dimer 1276 ng/mLFEU (0-500) H 07/01/18 13:57 - Impressions Impressions Chest X-Ray 07/01/18 13:19 IMPRESSION: The left upper lobe mass has decreased in size since the prior exam. No evidence of edema or pneumonia. D/ / 07/01/2018 14:10:45 Erick Gutierrez MD / Jeana Mendoza Interpreting Provider: Erick Gutierrez MD Chest CTA 07/01/18 14:37 IMPRESSION: 1. Negative for pulmonary embolic disease. 2. The left upper lobe nodule has decreased in size since the PET-CT. 3. Increased right middle and lower lobe mucous plugging. 4. Progressed compression deformities at T12 and L1. D/ / 07/01/2018 16:43:49 Erick Gutierrez MD / windy Interpreting Provider: Erick Gutierrez MD Toe X-Ray 07/01/18 17:56 IMPRESSION: 1. Possible small focus of gas gangrene along the lateral margin of the proximal left little toe. 2. Bones are severely osteoporotic limiting evaluation. 3. No definite acute osseous abnormality is evident; MRI evaluation may be indicated. D/ / Kwame Holder / Kwame Holder Interpreting Provider: Kwame Holder Consult Discharge Plan - Plan Referrals: Brody Gorman DO [Primary Care Provider] - ___ (3) COPD (chronic obstructive pulmonary disease) Qualifiers: COPD type: unspecified COPD Qualified Code(s): J44.9 - Chronic obstructive pulmonary disease, unspecified (4) Lung cancer Qualifiers: Laterality: left Lung location: upper lobe of lung Qualified Code(s): C34.12 - Malignant neoplasm of upper lobe, left bronchus or lung (5) Diabetes Qualifiers: Diabetes mellitus type: type 2 Diabetes mellitus correction insulin use: without correction use Diabetes mellitus complication status: with unspecified complications Qualified Code(s): E11.8 - Type 2 diabetes mellitus with unspecified complications (6) HLD (hyperlipidemia) Qualifiers: Hyperlipidemia type: unspecified Qualified Code(s): E78.5 - Hyperlipidemia, unspecified
--- NOTE | 2018-07-02 10:37 | Podiatry Consult Note ---
Date of Encounter: 07/02/18 Time of Encounter: 09:00 Assessment and Plan (1) Smoking addiction Current visit: Yes Status: Acute Assessment: Patient reports has smoked > 60 years She currently smokes 1 to 1.5 packs per day She declines any desire to quit smoking Plan: Smoking cessation discussed (2) Pressure injury, stage 1, in diabetic patient Current visit: Yes Status: Acute Assessment: Stage 1 pressure ulcer noted left lateral malleolus No evidence of infection noted bilateral feet No pre-ulcerative lesions, no rash, no erythema, no blisters, no streaking, no edema noted bilateral feet Toenails #1 through #5 bilaterally are thick, mycotic, and elongated with no si gns of bacterial infection noted Fungal and dirt debris removed from web spaces, #4 and #5 bilaterally Left #5 without any evidence of infection, no redness, no swelling, no discoloration, no open wounds No ischemia noted Skin cool bilaterally from toes to tibia Xerosis noted Left toe x-ray XR/XR toes LT IMPRESSION: 1. Possible small focus of gas gangrene along the lateral margin of the proximal left little toe. 2. Bones are severely osteoporotic limiting evaluation. 3. No definite acute osseous abnormality is evident; MRI evaluation may be indicated. WBC 8.0 Patient afebrile Blood sugar 103 Hgb A1c 6.1 on 01/23/18 Lactic acid 0.8 ABIs preliminary Right PT 0.79 DP 0.85 Left PT 0.76 DP 0.87 [place] duplex is preliminary and is negative for DVT/SVT bilaterally Plan: 4x4s applied to left malleolus and secured with kerlix Heel medix boots ordered and to be worn at all times while in bed, nursing staff to obtain from central supply May allow patient to eat from podiatry standpoint there is no need for emergent intervention at this time Recommend outpatient vascular consult if any necrosis develops, worsening pain, new or worse symptoms Patient to follow up in Podiatry after discharge for nail care, please call to schedule appointment Will continue to monitor History of Present Illness HPI: Ms. Mesa is a 73 year old female who presents to the emergency department on 07/01/18 for complaints of weakness and inability to walk due to pain left foot. 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 She reports the weakness and pain with ambulation started a couple of days before she came to the emergency room. Her daughter, who is present at the bedside, reports it has been going on for several weeks and states the patient ambulates very little at home. Patient is new to podiatry and podiatry was consulted due to possible gas gangrene left #5. Patient reports the pain is located left foot and is only noted with ambulation and tactile stimulation. Walking makes it w orse and rest makes it better. She denies any history of the same. She is a 1 to 1.5 ppd smoker and states she has smoked since she was 12 years old. Patient denies having any desire to quit smoking. She denies any alcohol or illicit drug use. She denies any chest pain, shortness of breath, or calf pain. She denies any fever, nausea, vomiting, or diarrhea. Past Med Surg Social Fam HX - Past Medical History Medical history: arthritis, cancer, diabetes, hyperlipidemia, osteoporosis Additional medical history: lung cancer Psychiatric history: no psych history - Past Surgical History Surgical History: cholecystectomy - Social History Smoking Status: Current every day smoker Smokeless Tobacco Status: No Alcohol use: none Drug use: none Medications and Allergies HYDROcodone/Acet 5/325 mg 2.5 mg PO 08,16 03/08/18 [History] Albuterol Sulfate [Albuterol Inhaler] 2 puff IH Q4H PRN 07/01/18 [History] Alendronate Sodium [Fosamax] 35 mg PO TH 07/01/18 [History] Atorvastatin Calcium [Lipitor] 20 mg PO DAILY 07/01/18 [History] Diclofenac Sodium [Diclofenac Sodium ER] 100 mg PO DAILY 07/01/18 [History] Fluticasone/Vilanterol [Breo Ellipta 100-25 Mcg INH] 1 each IH DAILY 07/01/18 [History] HYDROcodone/Acet 5/325 mg [[place] 5-325 mg] 1 tab PO HS 07/01/18 [History] metFORMIN [Glucophage] 1,000 mg PO DAILY 07/01/18 [History] Allergy/AdvReac Type Severity Reaction Status Date / Time No Known Allergies Allergy Verified 03/08/18 10:03 All Systems Reviewed: The remainder of the systems were reviewed and are negative Review of systems: As per HPI Physical Exam - Constitutional Vitals: Temp Pulse Resp BP Pulse Ox 98.2 F 109 15 92/45 91 07/02/18 10:20 07/02/18 10:20 07/02/18 10:20 07/02/18 10:20 07/02/18 10:20 Exam: Constitutional: Patient is alert and oriented x 3, no acute distress noted Vascular: 1/4 PT/DP pulses noted bilaterally, cap refill less than 3 seconds, no edema noted, skin cool from toes to tibia bilateral, no pain with calf squeeze bilateral extremities Neurological: Sensation intact, proprioception intact dorsiflexion/plantar flexion Dermatological: No open lesions, no pre-ulcerative lesions, no blisters, no rash, erythema, or maceration noted bilateral feet. Toenails #1 through #5 bilaterally thick, elongated, and mycotic. No evidence of infection noted. Stage 1 pressure ulcer noted left lateral malleolus Musculoskeletal: 3/5 muscle strength bilateral, normal tone feet and lower legs Results - Labs Result Diagrams: 07/02/18 05:34 07/02/18 05:34 Labs: Abnormal lab results RBC 3.30 M/mcL (3.82-4.97) L 07/02/18 05:34 Hgb 8.9 g/dL (11.5-15.4) L D 07/02/18 05:34 Hct 28.1 % (35.3-44.9) L 07/02/18 05:34 MCH 27.0 pg (28.0-33.3) L 07/02/18 05:34 RDW 17.7 % (11.5-14.5) H 07/02/18 05:34 D-Dimer 1276 ng/mLFEU (0-500) H 07/01/18 13:57 Sodium 135 mEq/L (136-145) L 07/02/18 05:34 Carbon Dioxide 22 mEq/L (23-29) L 07/02/18 05:34 Creatinine 0.45 mg/dL (0.60-1.20) L 07/02/18 05:34 Ur Specific [place] 1.028 (1.010-1.025) H 07/01/18 16:51 Ur Leukocyte Esterase Moderate (Negative) H 07/01/18 16:51 Urine Microscopic WBC 15-30 per hpf (0-3) H 07/01/18 16:51 Ur Squamous Epith Cells Many per lpf (None-Few) H 07/01/18 16:51 Ur Culture Indicated? NO. (NO) A 07/01/18 16:51 H & H 07/01/18 07/02/18 Range/Units 13:57 05:34 Hgb 10.5 L 8.9 L D (11.5-15.4) g/dL Hct 34.1 L 28.1 L (35.3-44.9) % All other labs normal. Consult Discharge Plan - Plan Referrals: Colopy,Brody Paulson DO [Primary Care Provider] -
[2018-07-02] MEDS: Aspirin Enteric Coated 81 MG Tablet PO SCH (15:10)
[2018-07-02] MEDS: Budesonide/Formoterol 160/4.5 1 PUFF INH IH SCH (20:04)
[2018-07-03] MEDS: Ipratropium/Albuterol Neb 3 ML IH SCH ×6 (03:46→23:57)
[2018-07-03 04:35] LABS: Hematocrit 25.6 % (35.3-44.9); Hemoglobin 7.9 g/dL (11.5-15.4); Mean Corpuscular HGB Conc 30.9 g/dL (31.6-35.5); Mean Corpuscular Hemoglobin 26.7 pg (28.0-33.3); Mean Corpuscular Volume 86.5 fL (83.0-100.0); Mean Platelet Volume 9.2 fL (9.4-12.4); Platelet Count 253 K/mcL (140-400); Red Blood Count 2.96 M/mcL (3.82-4.97); Red Cell Distribution Width 18.2 % (11.5-14.5)
[2018-07-03 04:54] LABS: % Iron Saturation 4 % (15-50); Iron 13 mcg/dL (50-170); Transferrin 263 mg/dL (203-362)
[2018-07-03 04:56] LABS: BUN/Creatinine Ratio 25 (6-26); Blood Urea Nitrogen 11 mg/dL (8-23); Calcium 8.5 mg/dL (8.6-10.3); Carbon Dioxide 25 mEq/L (23-29); Chloride 105 mEq/L (98-107); Glucose 104 mg/dL (70-105); Osmolality,Calculated 278 (280-300); Sodium 134 mEq/L (136-145); eGFR For Non-African Americans > 60 (> 60)
[2018-07-03 05:19] LABS: Folate 5.2 ng/mL (3.0-16.0)
[2018-07-03] MEDS: *HR* Heparin 5,000 UNIT/ML VIAL SQ SCH (05:37)
[2018-07-03] MEDS: Insulin LISPRO 300 UNITS/3 ML VIAL SQ SCH ×4 (07:43→22:21)
[2018-07-03] MEDS: *HR* HYDROcodone/Acet 5/325 mg TABLET PO SCH ×3 (07:53→22:17)
[2018-07-03] MEDS: Aspirin Enteric Coated 81 MG Tablet PO SCH (07:54)
[2018-07-03] MEDS: Budesonide/Formoterol 160/4.5 1 PUFF INH IH SCH ×2 (08:04→20:17)
--- NOTE | 2018-07-03 11:28 | Internal Med Progress Note ---
Hospitalist Progress Note - Encounter Date of Encounter: 07/03/18 Time of Encounter: 09:15 - Subjective Interval History: No acute events overnight. No fever/chills, nausea/vomiting, abdominal pain, melena, hematochezia, or bright red blood per rectum. - Exam Vitals: Temp Pulse Resp BP Pulse Ox 98.2 F 114 16 119/71 92 07/03/18 07:20 07/03/18 07:20 07/03/18 08:04 07/03/18 07:20 07/03/18 08:04 Exam: General: Alert and oriented, not in acute distress. Cardiovascular:Normal S1 & S2, No JVD. Pulse regular. Lungs: Diminished breath sound in the right lung field without obvious wheezes or rhonchi Abdomen:Soft, non-tender, no rigidity. Extremities: BOth feet cool to touch, SHAREHOLDER ~ 3 secs. Intact power in both LEs. Left fifth toe without any open lesions/ulcer, no blisters/rash/erythema. Toenails #1 through #5 bilaterally thick, elongated, and mycotic. Stage 1 pressure ulcer noted left lateral malleolus Neurological:Normal cognition and motor skills. Non-focal - Assessment and Plan (1) Gangrene Current Visit: Yes Status: Ruled-out Assessment and Plan: XR shows ?possible gas gangrene of L 5th toe pt is not septic, no fever/chills, no leukocytosis, or no hemodynamic instability podiatry input appreciated, low suspicion for acute processes. Outpatient vascular surgery follow up for PAD (2) PAD (peripheral artery disease) Current Visit: Yes Status: Chronic Assessment and Plan: active smoker, presented with what appears to be claudication YINKA showed right PT- 0.79 AND DP- 0.85 and left PT- 0.76 and DP- 0.87, consistent with PAD XR report as above, low suspicion for gangrene per podiatry Was given IV Vanc/cefepime in the ED. Continue to monitor off abx. start ASA, continue statin Outpatient vascular surgery follow up (3) COPD (chronic obstructive pulmonary disease) Current Visit: Yes Status: Chronic Assessment and Plan: History of COPD with active tobacco use Does not appear to be in exacerbation although CT imaging showed mucus plugging in right middle and lower lobe Continue scheduled bronchodilators, chest PT monitor off steroid and abx smoking cessation emphasized, pt is not interested (4) Lung cancer Current Visit: Yes Status: Chronic Assessment and Plan: s/p radiotherapy, nodule has decreased in size since then outpatient follow up (5) Diabetes Current Visit: Yes Status: Chronic Assessment and Plan: On metformin at home. Hold Sliding scale coverage ADA diet (6) HLD (hyperlipidemia) Current Visit: Yes Status: Chronic Assessment and Plan: continue statin (7) DVT prophylaxis Current Visit: Yes Status: Acute Assessment and Plan: SQ Hep (8) Anemia Current Visit: Yes Status: Chronic Assessment and Plan: Hb trended down to 7.9, part of which could be dilutional from IVF she initially received No signs and symptoms of active GI bleeding. Patient remained hemodynamically stable IV Iron, PO B12 supplementation GI consult for EGD/colonoscopy (9) B12 deficiency Current Visit: Yes Status: Acute Assessment and Plan: Part of her left leg pain could be secondary to neuropathy related to B12 deficiency PO supplementation DVT Prophylaxis: EPCD - Time Spent with Patient Total time spent is greater than 50% in coordination of care (as documented) at patient's floor/unit and/or counseling patient: Plan of Care Discussed with: patient (discussed with GI and pt's daughter at bedside) Internal Medicine: Result - Labs CBC & Chem 7: 07/03/18 04:19 07/03/18 04:19 Labs: Short CBC 07/03/18 Range/Units 04:19 WBC 6.5 (4.3-11.1) K/mcL Hgb 7.9 L (11.5-15.4) g/dL Hct 25.6 L (35.3-44.9) % Plt Count 253 (140-400) K/mcL BMP 07/03/18 04:19 Sodium 134 L Potassium 4.0 Chloride 105 Carbon Dioxide 25 BUN 11 Creatinine 0.44 L Glucose 104 Calcium 8.5 L - ABG Interpretation ABG results: PT/INR, D-dimer PT 10.7 Seconds (9.4-12.1) 07/02/18 05:34 D-Dimer 1276 ng/mLFEU (0-500) H 07/01/18 13:57 Consult Discharge Plan - Plan Referrals: Brody Gorman DO [Primary Care Provider] - (3) COPD (chronic obstructive pulmonary disease) Qualifiers: COPD type: unspecified COPD Qualified Code(s): J44.9 - Chronic obstructive pulmonary disease, unspecified (4) Lung cancer Qualifiers: Laterality: left Lung location: upper lobe of lung Qualified Code(s): C34.12 - Malignant neoplasm of upper lobe, left bronchus or lung (5) Diabetes Qualifiers: Diabetes mellitus type: type 2 Diabetes mellitus retirement insulin use: without retirement use Diabetes mellitus complication status: with unspecified complications Qualified Code(s): E11.8 - Type 2 diabetes mellitus with unspecified complications (6) HLD (hyperlipidemia) Qualifiers: Hyperlipidemia type: unspecified Qualified Code(s): E78.5 - Hyperlipidemia, unspecified (8) Anemia Qualifiers: Anemia type: iron deficiency Iron deficiency anemia type: unspecified iron deficiency Qualified Code(s): D50.9 - Iron deficiency anemia, unspecified
[2018-07-03] MEDS: Sodium Ferric Gluconat/Sucrose 125 MG in 0.9 % Sodium Chloride 100 ML IVPB SCH (11:43)
[2018-07-03] MEDS: Cyanocobalamin (B-12) 1,000 MCG TABLET PO SCH (11:43)
--- NOTE | 2018-07-03 12:11 | Gastroenterology Consult Note ---
<SeymourNeeraj Farhat - Last Filed: 07/03/18 12:07> Date of Encounter: 07/03/18 Time of Encounter: 09:50 - Assessment and plan (1) Anemia Current Visit: Yes Status: Chronic Assessment and plan: Hgb 10.5 on admission and this AM Hgb 7.9 with MCV 86.5, iron 13. Check ferritin. Continue to monitor CBC and transfuse PRBC as needed. Plan for EGD and colonoscopy tomorrow. Clear liquid diet today, no red or purple. NPO at midnight. If unable tolerate NuLytely please use MiraLAX prep. If not clear by 6 AM, give 2 tap water enemas. Qualifiers: Anemia type: iron deficiency Iron deficiency anemia type: unspecified iron deficiency Qualified Code(s): D50.9 - Iron deficiency anemia, unspecified (2) PAD (peripheral artery disease) Current Visit: Yes Status: Chronic - Time Spent With Patient Total time spent is greater than 50% in coordination of care (as documented) at patient's floor/unit and/or counseling patient: GI History of Present Illness - Data of Consult Patient: new to practice Consult date: 07/03/18 Requesting Physician: Sameer Stone MD - Consult Narrative Reason for consult: SARAN History of present illness: Ms. Mesa is a 73 year old female with PMHx of left upper lobe squamous cell carcinoma, DM, HLD, COPD, who presented to the ED with complaints of sharp left foot/leg pain with walking. She denies any fever, chills, chest pain, SOB, abdominal pain, nausea, vomiting, melena, or hematochezia. We were consulted to evaluate her iron deficiency anemia. Hgb 10.5 on admission and this AM Hgb 7.9 with MCV 86.5, iron 13. 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 Procedures: No record NSAIDs: None Anticoagulation: None Past Med Surg Social Fam HX - Past Medical History Medical history: arthritis, cancer, diabetes, hyperlipidemia, osteoporosis Additional medical history: lung cancer Psychiatric history: no psych history - Past Surgical History Surgical History: cholecystectomy - Social History Smoking Status: Current every day smoker Smokeless Tobacco Status: No Alcohol use: none Drug use: none - Gastrointestinal Gastrointestinal: Present: as per HPI - Constitutional Constitutional: as per HPI - EENT Eyes: as per HPI Ears: Present: as per HPI Nose, mouth and throat: Present: as per HPI - Cardiovascular Cardiovascular ROS: Present: as per HPI - Respiratory Respiratory IM: Present: as per HPI - Genitourinary Genitourinary: Absent: change in color, Urinary frequency - Neurological ROS Neurological GI: Present: as per HPI - Hematologic/Lymphatic Hematologic/Lymphatic pediatric: Present: as per HPI - Musculoskeletal Musculoskeletal ROS GI: Present: as per HPI - Integumentary Integumentary GI: Present: as per HPI - Psychiatric ROS Psychiatric GI: Present: as per HPI - Endocrine Endocrine IM: Present: as per HPI - Constitutional Vitals: Temp Pulse Resp BP Pulse Ox 98.2 F 114 16 119/71 92 07/03/18 07:20 07/03/18 07:20 07/03/18 11:45 07/03/18 07:20 07/03/18 11:45 General appearance: Present: cooperative, A&O X 3, no acute distress, answers questions appropriately - Head Head exam: Present: atraumatic, normocephalic - Eye Eye exam: Present: normal appearance, sclera anicteric - ENT ENT exam: Present: mucous membranes moist - Neck Neck exam general surgery: Present: normal inspection, trachea midline - Respiratory Respiratory exam: Present: decreased breath sounds, rhonchi, wheezes - Cardiovascular Cardiovascular exam: Present: RRR, +S1, +S2 - GI/Abdominal GI/Abdominal exam: Present: soft, no peritoneal signs. Absent: distended, firm, guarding, tenderness - Rectal Rectal exam: Present: deferred - Neurological Exam Neurological exam: Present: no focal deficits - Psychiatric Psychiatric exam: Present: normal affect, normal mood Results - Labs CBC & Chem 7: 07/03/18 04:19 07/03/18 04:19 Labs: Last Result Calcium 8.5 mg/dL (8.6-10.3) L 07/03/18 04:19 Iron 13 mcg/dL (50-170) L 07/03/18 04:19 % Saturation 4 % (15-50) L 07/03/18 04:19 Transferrin 263 mg/dL (203-362) 07/03/18 04:19 Troponin I < 0.03 ng/mL (< 0.04) 07/01/18 13:57 Vitamin B12 153 pg/mL (250-1100) L 07/03/18 04:19 Folate 5.2 ng/mL (3.0-16.0) 07/03/18 04:19 Entire Visit Hgb 7.9 g/dL (11.5-15.4) L 07/03/18 04:19 Hct 25.6 % (35.3-44.9) L 07/03/18 04:19 PT 10.7 Seconds (9.4-12.1) 07/02/18 05:34 Total Bilirubin 0.4 mg/dL (0.3-1.0) 07/01/18 13:57 AST 15 Units/L (13-39) 07/01/18 13:57 ALT 9 Units/L (7-52) 07/01/18 13:57 Folate 5.2 ng/mL (3.0-16.0) 07/03/18 04:19 - ABG ABG results: PT/INR, D-dimer PT 10.7 Seconds (9.4-12.1) 07/02/18 05:34 D-Dimer 1276 ng/mLFEU (0-500) H 07/01/18 13:57 Consult Discharge Plan - Plan Referrals: Brody Gorman DO [Primary Care Provider] - <Chary Tello - Last Filed: 07/03/18 14:28> Date of Encounter: 07/03/18 Time of Encounter: 14:00 - Time Spent With Patient Total time spent is greater than 50% in coordination of care (as documented) at patient's floor/unit and/or counseling patient: GI History of Present Illness - Data of Consult Requesting Physician: Sameer Stone MD - Consult Narrative History of present illness: Ms. Mesa is a 73 year old female - Constitutional Vitals: Temp Pulse Resp BP Pulse Ox 98.5 F 138 16 116/65 91 07/03/18 12:17 07/03/18 12:17 07/03/18 12:17 07/03/18 12:17 07/03/18 12:17 Results - Labs CBC & Chem 7: 07/03/18 04:19 07/03/18 04:19 Labs: Last Result Calcium 8.5 mg/dL (8.6-10.3) L 07/03/18 04:19 Iron 13 mcg/dL (50-170) L 07/03/18 04:19 % Saturation 4 % (15-50) L 07/03/18 04:19 Transferrin 263 mg/dL (203-362) 07/03/18 04:19 Ferritin 16 ng/mL (10-120) 07/03/18 13:03 Troponin I < 0.03 ng/mL (< 0.04) 07/01/18 13:57 Vitamin B12 153 pg/mL (250-1100) L 07/03/18 04:19 Folate 5.2 ng/mL (3.0-16.0) 07/03/18 04:19 Entire Visit Hgb 7.9 g/dL (11.5-15.4) L 07/03/18 04:19 Hct 25.6 % (35.3-44.9) L 07/03/18 04:19 PT 10.7 Seconds (9.4-12.1) 07/02/18 05:34 Ferritin 16 ng/mL (10-120) 07/03/18 13:03 Total Bilirubin 0.4 mg/dL (0.3-1.0) 07/01/18 13:57 AST 15 Units/L (13-39) 07/01/18 13:57 ALT 9 Units/L (7-52) 07/01/18 13:57 Folate 5.2 ng/mL (3.0-16.0) 07/03/18 04:19 - ABG ABG results: PT/INR, D-dimer PT 10.7 Seconds (9.4-12.1) 07/02/18 05:34 D-Dimer 1276 ng/mLFEU (0-500) H 07/01/18 13:57 - Attending Attestation I have personally performed a face to face evaluation on this patient. I have reviewed and agree with the care plan. History and Exam by me shows: Patient seen. No overt GI bleeding. On examination alert and awake. Assessment: patient 73-year-old female with multiple medical medical issues now with anemia. Rec; EGD and colonoscopy tomorrow to rule out GI causes for anemia
--- NOTE | 2018-07-03 12:24 | Podiatry Progress Note ---
Date of Encounter: 07/03/18 Time of Encounter: 10:10 - Assessment and Plan (1) Smoking addiction Current Visit: Yes Status: Acute Assessment: Patient reports has smoked > 60 years She currently smokes 1 to 1.5 packs per day She declines any desire to quit smoking Plan: Smoking cessation discussed (2) Pressure injury, stage 1, in diabetic patient Current Visit: Yes Status: Acute Assessment: Stage 1 pressure ulcer noted left lateral malleolus No evidence of infection noted bilateral feet No pre-ulcerative lesions, no rash, no erythema, no blisters, no streaking, no edema noted bilateral feet Toenails #1 through #5 bilaterally are thick, mycotic, and elongated with no s igns of bacterial infection noted Left #5 without any evidence of infection, no redness, no swelling, no discoloration, no open wounds No ischemia noted Skin warm bilaterally from toes to tibia Xerosis noted Left toe x-ray XR/XR toes LT IMPRESSION: 1. Possible small focus of gas gangrene along the lateral margin of the proximal left little toe. 2. Bones are severely osteoporotic limiting evaluation. 3. No definite acute osseous abnormality is evident; MRI evaluation may be indicated. WBC 6.5 Patient afebrile Blood sugar 104 Hgb A1c 6.1 on 01/23/18 Lactic acid 0.8 ABIs Right PT 0.79 DP 0.85 Left PT 0.76 DP 0.87 [place]ario duplex without evidence of DVT/SVT bilaterally Plan: 4x4s applied to left malleolus and secured with kerlix Heel medix boots to be worn at all times while in bed Recommend outpatient vascular consult if any necrosis develops, worsening pain, new or worse symptoms Patient to follow up in Podiatry after discharge for nail care, please call to schedule appointment Will sign off, please re-consult if feel needs further evaluation from Podiatry team Subjective Interval history: Patient is alert and oriented x 3, no acute distress noted with family at bedside. Heel medix boots on bilaterally. She denies any chest pain, shortness of breath, or calf pain. She denies any fever, chills, nausea, vomiting, or diarrhea. Objective - Vital Signs Vital Signs: Vital Signs Temp Pulse Resp BP Pulse Ox 07/03/18 12:17 98.5 F 138 16 116/65 91 07/03/18 11:45 16 92 07/03/18 08:04 16 92 07/03/18 07:20 98.2 F 114 16 119/71 91 07/03/18 04:26 98.3 F 112 18 113/60 90 07/03/18 03:46 14 94 07/02/18 23:50 15 95 07/02/18 21:51 94 07/02/18 20:04 15 94 07/02/18 19:35 98.9 F 99 16 94/53 90 07/02/18 16:55 98.6 F 07/02/18 14:30 98.4 F 121 16 106/55 92 Intake and Output 07/02/18 07/03/18 07/03/18 23:59 07:59 15:59 Intake Total 1000 / 1000 200 / 200 Output Total 0 / 0 150 / 150 Balance 1000 / 1000 50 / 50 Intake: IV Fluids 1000 / 1000 Lactated Ringers 1,000 ML @ 75 1000 / 1000 mls/hr IVC .[id number] KANWAL Rx#: [id number] Oral 0 / 0 200 / 200 Output: Urine 0 / 0 150 / 150 Other: # Voids 1 1 # Urine Diapers 1 Blood Glucose* 108 110 151 - Exam Exam: Constitutional: Patient is alert and oriented x 3, no acute distress noted Vascular: 1/4 PT/DP pulses noted bilaterally, cap refill less than 3 seconds, no edema noted, skin warm from toes to tibia bilateral, no pain with calf squeeze bilateral extremities Neurological: Sensation intact, proprioception intact dorsiflexion/plantar flexion Dermatological: No open lesions, no pre-ulcerative lesions, no blisters, no rash, erythema, or maceration noted bilateral feet. Toenails #1 through #5 bilaterally thick, elongated, and mycotic. No evidence of infection noted. Stage 1 pressure ulcer noted left lateral malleolus Musculoskeletal: 3/5 muscle strength bilateral, normal tone feet and lower legs - Lab Result Diagrams: 07/03/18 04:19 07/03/18 04:19 Labs: Abnormal lab results RBC 2.96 M/mcL (3.82-4.97) L 07/03/18 04:19 Hgb 7.9 g/dL (11.5-15.4) L 07/03/18 04:19 Hct 25.6 % (35.3-44.9) L 07/03/18 04:19 MCH 26.7 pg (28.0-33.3) L 07/03/18 04:19 MCHC 30.9 g/dL (31.6-35.5) L 07/03/18 04:19 RDW 18.2 % (11.5-14.5) H 07/03/18 04:19 MPV 9.2 fL (9.4-12.4) L 07/03/18 04:19 D-Dimer 1276 ng/mLFEU (0-500) H 07/01/18 13:57 Sodium 134 mEq/L (136-145) L 07/03/18 04:19 Creatinine 0.44 mg/dL (0.60-1.20) L 07/03/18 04:19 POC Glucose 108 mg/dL (70-99) H 07/02/18 21:00 Calculated Osmolality 278 (280-300) L 07/03/18 04:19 Calcium 8.5 mg/dL (8.6-10.3) L 07/03/18 04:19 Iron 13 mcg/dL (50-170) L 07/03/18 04:19 % Saturation 4 % (15-50) L 07/03/18 04:19 Vitamin B12 153 pg/mL (250-1100) L 07/03/18 04:19 Ur Specific Meredith 1.028 (1.010-1.025) H 07/01/18 16:51 Ur Leukocyte Esterase Moderate (Negative) H 07/01/18 16:51 Urine Microscopic WBC 15-30 per hpf (0-3) H 07/01/18 16:51 Ur Squamous Epith Cells Many per lpf (None-Few) H 07/01/18 16:51 Ur Culture Indicated? NO. (NO) A 07/01/18 16:51 Microbiology, Last 48 Hours 07/01/18 14:00 Blood Culture - Preliminary Peripheral Venipuncture Culture is incubating and being continuously monitored for growth. Final report to follow. 07/01/18 13:57 Blood Culture - Preliminary Peripheral Venipuncture Culture is incubating and being continuously monitored for growth. Final report to follow. Consult Discharge Plan - Plan Referrals: ColBrody pretty DO [Primary Care Provider] -
[2018-07-03] MEDS ORDERED: SODIUM CHLORIDE/NAHCO3/KCL/PEG 4,000 ML SOLN.RECON PO ONE (17:00)
--- NOTE | 2018-07-03 18:03 | Anesthesia Evaluation PreOp ---
<LobitoValencia - Last Filed: 07/03/18 19:15> Date of Encounter: 07/03/18 Time of Encounter: 19:15 - Past History Planned Operation: EGD/Colon Cardiac History: HTN, Hyperlipidemia, Other (PVDz/Admitted 07/01/2018 unable to walk secondary to complaints of L-leg/foot pain - presumably claudication) Pulmonary History: Smoker (1-1.5ppd x >60yrs), COPD, Other (Squamous Cell Ca PAUL s/p radiotherapy) Other Medical History: Diabetes Type II, Other (Osteoporosis) Anesthesia History: No Prior Anesthetic Complications, Past Anesthesia (Deborah) Alcohol Use: none Drug use: none Medications and Allergies HYDROcodone/Acet 5/325 mg 2.5 mg PO ,16 03/08/18 [History] Albuterol Sulfate [Albuterol Inhaler] 2 puff IH Q4H PRN 07/01/18 [History] Alendronate Sodium [Fosamax] 35 mg PO TH 07/01/18 [History] Atorvastatin Calcium [Lipitor] 20 mg PO DAILY 07/01/18 [History] Diclofenac Sodium [Diclofenac Sodium ER] 100 mg PO DAILY 07/01/18 [History] Fluticasone/Vilanterol [Breo Ellipta 100-25 Mcg INH] 1 each IH DAILY 07/01/18 [History] HYDROcodone/Acet 5/325 mg [[place] 5-325 mg] 1 tab PO HS 07/01/18 [History] metFORMIN [Glucophage] 1,000 mg PO DAILY 07/01/18 [History] Allergy/AdvReac Type Severity Reaction Status Date / Time No Known Allergies Allergy Verified 03/08/18 10:03 - Meds/Allergy Pre-op Review Medications Reviewed: Yes Allergies Reviewed: Yes Beta Blockers on Current Med List: No Anesthesia Results - Labs 07/03/18 04:19 07/03/18 04:19 Laboratory Results Laboratory Tests 07/01/18 07/02/18 07/03/18 13:57 05:34 04:19 PT 10.7 INR 1.0 D-Dimer 1276 H Est GFR (Non-Af Amer) > 60 Impressions Chest X-Ray 07/01/18 13:19 IMPRESSION: The left upper lobe mass has decreased in size since the prior exam. No evidence of edema or pneumonia. D/ / 07/01/2018 14:10:45 Erick Gutierrez MD / Jeana lui Interpreting Provider: Erick Gutierrez MD Chest CTA 07/01/18 14:37 IMPRESSION: 1. Negative for pulmonary embolic disease. 2. The left upper lobe nodule has decreased in size since the PET-CT. 3. Increased right middle and lower lobe mucous plugging. 4. Progressed compression deformities at T12 and L1. D/ / 07/01/2018 16:43:49 Erick Gutierrez MD / windy Interpreting Provider: Erick Gutierrez MD Toe X-Ray 07/01/18 17:56 IMPRESSION: 1. Possible small focus of gas gangrene along the lateral margin of the proximal left little toe. 2. Bones are severely osteoporotic limiting evaluation. 3. No definite acute osseous abnormality is evident; MRI evaluation may be indicated. D/ / Kwame Holder / Kwame Holder Interpreting Provider: Kwame Holder - Imaging EKG: pending Chest x-ray: report reviewed Anesthesia Exam Vital Signs Temp Pulse Resp BP Pulse Ox 07/03/18 15:50 16 93 07/03/18 12:17 98.5 F 138 16 116/65 91 07/03/18 11:45 16 92 07/03/18 08:04 16 92 07/03/18 07:20 98.2 F 114 16 119/71 91 07/03/18 04:26 98.3 F 112 18 113/60 90 07/03/18 03:46 14 94 07/02/18 23:50 15 95 07/02/18 21:51 94 07/02/18 20:04 15 94 07/02/18 19:35 98.9 F 99 16 94/53 90 Intake and Output 07/03/18 07/03/18 07/03/18 07:59 15:59 23:59 Intake Total 200 / 200 Output Total 150 / 150 Balance 50 / 50 Intake: Oral 200 / 200 Output: Urine 150 / 150 Other: # Voids 1 # Urine Diapers 1 Blood Glucose* 110 151 Height: 5'1 Weight: 107# BMI = 20 - HEENT Pupil (Motor): Pupils equal, EOMI Mallampati: II Teeth: Edentulous Oral Opening: Greater than 3 - ADHESIVE BANDAGE MAKING OPERATOR LOC: Oriented ADHESIVE BANDAGE MAKING OPERATOR Motor: Normal RUE, Normal LUE, Normal RLE, Normal Face, Deficit LLE ADHESIVE BANDAGE MAKING OPERATOR Sensory: Normal: RUE, LUE, RLE, Face, Deficit: LLE - Cardiac Rhythm: Regular Murmur: None - Pulmonary Breath Sounds: bilateral Rhonchi Respiratory Effort: Symmetrical Anesthesia Assess/Plan ASA Score: 4 (Lung Ca, Active Smoker, COPD, HTN, Deborah, DM) <Ahmet Cook - Last Filed: 07/04/18 13:32> Date of Encounter: 07/04/18 Anesthesia Results - Labs 07/04/18 04:14 07/04/18 04:14 - Imaging EKG: report reviewed (07/01/2018 Sinus rhythm Low voltage, extremity and precordial leads) Anesthesia Exam Vital Signs/O2 Sat/Glucose, Most Recent Temp Pulse Resp BP Pulse Ox 98.2 F 102 18 105/53 92 07/04/18 12:03 07/04/18 12:03 07/04/18 12:03 07/04/18 12:03 07/04/18 12:03 Blood Glucose* 91 NPO (# of Hours): 8 Pain Scale: 0 Pain Scale Used: Numeric (1 - 10) Anesthesia Assess/Plan ASA Score: 4 Level of consciousness: Cooperative, Oriented, Tranquil Anesthetic Plan: MAC Monitoring Plan: Standard Monitors
--- NOTE | 2018-07-04 00:57 | Electrocardiograph Report ---
[address] [address] Test Date: 2018-07-01 Pat Name: Fabienne Mesa Department: [id number] Room: 3A45 Gender: F Functional Tester Typewriters: : 1945 Requested By: Ahmet Yeh Order Number: [id number] Reading MD: Abigail Burgos Measurements Intervals [place] Rate: 79 P: 60 [place]: 160 QRS: -8 QRSD: 78 T: 31 QT: 393 QTc: 451 Interpretive Statements Sinus rhythm Low voltage, extremity and precordial leads Electronically Signed On 07-04-2018 0:55:44 EST by Abigail Burgos
[2018-07-04] MEDS: Ipratropium/Albuterol Neb 3 ML IH SCH ×5 (03:06→20:01)
[2018-07-04 05:40] LABS: Basophils % 0.5 %; Eosinophils # 0.2 K/mcL (0.0-0.6); Eosinophils % 3.2 %; Hematocrit 28.3 % (35.3-44.9); Hemoglobin 8.7 g/dL (11.5-15.4); Immature Granulocytes % 0.5 % (0-4); Lymphocytes # 0.7 K/mcL (0.6-4.6); Lymphocytes % 11.4 %; Mean Corpuscular HGB Conc 30.7 g/dL (31.6-35.5); Mean Corpuscular Hemoglobin 26.9 pg (28.0-33.3); Mean Corpuscular Volume 87.3 fL (83.0-100.0); Mean Platelet Volume 9.4 fL (9.4-12.4); Monocytes # 0.7 K/mcL (0.0-1.3); Neutrophils # 4.9 K/mcL (1.6-8.9); Platelet Count 277 K/mcL (140-400); Red Blood Count 3.24 M/mcL (3.82-4.97); Red Cell Distribution Width 18.4 % (11.5-14.5); Segmented Neutrophils % 74.4 %
[2018-07-04 06:11] LABS: BUN/Creatinine Ratio 14 (6-26); Blood Urea Nitrogen 5 mg/dL (8-23); Calcium 8.6 mg/dL (8.6-10.3); Carbon Dioxide 25 mEq/L (23-29); Chloride 104 mEq/L (98-107); Glucose 90 mg/dL (70-105); Osmolality,Calculated 279 (280-300); Potassium 3.8 mEq/L (3.5-5.1); Sodium 136 mEq/L (136-145); eGFR For Non-African Americans > 60 (> 60)
[2018-07-04] MEDS: Budesonide/Formoterol 160/4.5 1 PUFF INH IH SCH ×2 (07:21→20:01)
[2018-07-04] MEDS: Insulin LISPRO 300 UNITS/3 ML VIAL SQ SCH ×5 (07:32→21:18)
[2018-07-04] MEDS: Cyanocobalamin (B-12) 1,000 MCG TABLET PO SCH (09:09)
[2018-07-04] MEDS: *HR* HYDROcodone/Acet 5/325 mg TABLET PO SCH ×3 (09:09→21:09)
[2018-07-04] MEDS: Aspirin Enteric Coated 81 MG Tablet PO SCH (09:09)
[2018-07-04] MEDS: Sodium Ferric Gluconat/Sucrose 125 MG in 0.9 % Sodium Chloride 100 ML IVPB SCH (12:38)
[2018-07-04] MEDS ORDERED: Propofol 500 MG/50 ML INFUS..BTL ONE (13:34)
[2018-07-04] MEDS ORDERED: Albuterol 2.5 MG/3 ML NEBULIZER ONE (13:35)
[2018-07-04] MEDS ORDERED: Lidocaine -MPF 2% 2 ML VIAL ONE (13:38)
[2018-07-04] MEDS ORDERED: *HR* PHENYLEPHRINE 1,000 MCG/10 ML SYRINGE IVP ONE (14:07)
--- NOTE | 2018-07-04 18:37 | Internal Med Progress Note ---
Hospitalist Progress Note - Encounter Date of Encounter: 07/04/18 Time of Encounter: 18:36 - Subjective Interval History: Pt denies fever, chils, N/V or dairrhea. She denies CP or SOB. She denies abdominal pain. - Exam Vitals: Temp Pulse Resp BP Pulse Ox 97.8 F 104 95 123/65 95 07/04/18 15:36 07/04/18 15:36 07/04/18 17:00 07/04/18 15:36 07/04/18 17:00 Exam: General: Alert and oriented, not in acute distress. Cardiovascular:Normal S1 & S2, No JVD. Pulse regular. Lungs: Diminished breath sound in the right lung field without obvious wheezes or rhonchi Abdomen:Soft, non-tender, no rigidity. Extremities: BOth feet cool to touch, COMMUNITY ENGAGEMENT REPRESENTATIVE ~ 3 secs. Intact power in both LEs. Left fifth toe without any open lesions/ulcer, no blisters/rash/erythema. Toenails #1 through #5 bilaterally thick, elongated, and mycotic. Stage 1 pressure ulcer noted left lateral malleolus. Skin: warm, no bruises. Neurological:Normal cognition and motor skills. Non-focal - Assessment and Plan (1) Gangrene Current Visit: Yes Status: Ruled-out Assessment and Plan: XR shows ?possible gas gangrene of L 5th toe pt is not septic, no fever/chills, no leukocytosis, or no hemodynamic instability Podiatry input appreciated, low suspicion for acute processes. Outpatient vascular surgery follow up for PAD. (2) PAD (peripheral artery disease) Current Visit: Yes Status: Chronic Assessment and Plan: Active smoker, presented with what appears to be claudication YINKA showed right PT- 0.79 AND DP- 0.85 and left PT- 0.76 and DP- 0.87, consistent with PAD XR report as above, low suspicion for gangrene per podiatry Was given IV Vanc/cefepime in the ED. Continue to monitor off abx. started ASA and continue statin. Outpatient vascular surgery follow up. (3) Lung cancer Current Visit: Yes Status: Chronic Assessment and Plan: s/p radiotherapy, nodule has decreased in size since then outpatient follow up (4) Diabetes Current Visit: Yes Status: Chronic Assessment and Plan: On metformin at home. Hold Sliding scale coverage ADA diet (5) HLD (hyperlipidemia) Current Visit: Yes Status: Chronic Assessment and Plan: continue statin (6) COPD (chronic obstructive pulmonary disease) Current Visit: Yes Status: Chronic Assessment and Plan: History of COPD with active tobacco use Does not appear to be in exacerbation although CT imaging showed mucus plugging in right middle and lower lobe Continue scheduled bronchodilators, chest PT monitor off steroid and abx smoking cessation emphasized, pt is not interested (7) Anemia Current Visit: Yes Status: Chronic Assessment and Plan: Hb trended down to 7.9, part of which could be dilutional from IVF she initially received No signs and symptoms of active GI bleeding. 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 She reports the weakness and pain with ambulation started a couple of days before she came to the emergency room. Her daughter, who is present at the bedside, reports it has been going on for several weeks and states the patient ambulates very little at home. Patient is new to podiatry and podiatry was consulted due to possible gas gangrene left #5. Patient reports the pain is located left foot and is only noted with ambulation and tactile stimulation. Walking makes it worse and rest makes it better. She denies any history of the same. She is a 1 to 1.5 ppd smoker and states she has smoked since she was 12 years old. Patient denies having any desire to quit smoking. She denies any alcohol or illicit drug use. She denies any chest pain, shortness of breath, or calf pain. She denies any fever, nausea, vomiting, or diarrhea. - Time Spent with Patient Total time spent is greater than 50% in coordination of care (as documented) at patient's floor/unit and/or counseling patient: less than 15 minutes Plan of Care Discussed with: patient Internal Medicine: Result - Labs CBC & Chem 7: 07/04/18 04:14 07/04/18 04:14 Labs: Short CBC 07/04/18 Range/Units 04:14 WBC 6.5 (4.3-11.1) K/mcL Hgb 8.7 L (11.5-15.4) g/dL Hct 28.3 L (35.3-44.9) % Plt Count 277 (140-400) K/mcL Neutrophils # 4.9 (1.6-8.9) K/mcL BMP 07/04/18 04:14 Sodium 136 Potassium 3.8 Chloride 104 Carbon Dioxide 25 BUN 5 L Creatinine 0.35 L Glucose 90 Calcium 8.6 - ABG Interpretation ABG results: PT/INR, D-dimer PT 10.7 Seconds (9.4-12.1) 07/02/18 05:34 D-Dimer 1276 ng/mLFEU (0-500) H 07/01/18 13:57 Consult Discharge Plan - Plan Referrals: Brody Gorman DO [Primary Care Provider] - (3) Lung cancer Qualifiers: Laterality: left Lung location: upper lobe of lung Qualified Code(s): C34.12 - Malignant neoplasm of upper lobe, left bronchus or lung (4) Diabetes Qualifiers: Diabetes mellitus type: type 2 Diabetes mellitus mcfp insulin use: without mcfp use Diabetes mellitus complication status: with unspecified complications Qualified Code(s): E11.8 - Type 2 diabetes mellitus with unspecified complications (5) HLD (hyperlipidemia) Qualifiers: Hyperlipidemia type: unspecified Qualified Code(s): E78.5 - Hyperlipidemia, unspecified (6) COPD (chronic obstructive pulmonary disease) Qualifiers: COPD type: unspecified COPD Qualified Code(s): J44.9 - Chronic obstructive pulmonary disease, unspecified (7) Anemia Qualifiers: Anemia type: iron deficiency Iron deficiency anemia type: unspecified iron deficiency Qualified Code(s): D50.9 - Iron deficiency anemia, unspecified
[2018-07-05] MEDS: Ipratropium/Albuterol Neb 3 ML IH SCH ×7 (04:03→23:59)
[2018-07-05] MEDS: Budesonide/Formoterol 160/4.5 1 PUFF INH IH SCH ×2 (07:22→19:55)
[2018-07-05] MEDS: Insulin LISPRO 300 UNITS/3 ML VIAL SQ SCH ×4 (08:00→21:05)
[2018-07-05] MEDS: Aspirin Enteric Coated 81 MG Tablet PO SCH (10:04)
[2018-07-05] MEDS: Cyanocobalamin (B-12) 1,000 MCG TABLET PO SCH (10:04)
[2018-07-05] MEDS: *HR* HYDROcodone/Acet 5/325 mg TABLET PO SCH ×3 (10:09→21:07)
[2018-07-05] MEDS: Sodium Ferric Gluconat/Sucrose 125 MG in 0.9 % Sodium Chloride 100 ML IVPB SCH (10:10)
--- NOTE | 2018-07-05 15:56 | Internal Med Progress Note ---
Hospitalist Progress Note - Encounter Date of Encounter: 07/05/18 Time of Encounter: 15:48 - Subjective Interval History: Pt denies fever, chils, N/V or dairrhea. She denies CP or SOB. She denies abdominal pain. - Exam Vitals: Temp Pulse Resp BP Pulse Ox 98.1 F 99 14 116/64 95 07/05/18 10:43 07/05/18 10:43 07/05/18 15:43 07/05/18 10:43 07/05/18 15:43 Exam: General: Alert and oriented, not in acute distress. Cardiovascular:Normal S1 & S2, No JVD. Pulse regular. Lungs: Diminished breath sound in the right lung field without obvious wheezes or rhonchi Abdomen:Soft, non-tender, no rigidity. Extremities: BOth feet cool to touch, CLIENT EVALUATOR ~ 3 secs. Intact power in both LEs. Left fifth toe without any open lesions/ulcer, no blisters/rash/erythema. Toenails #1 through #5 bilaterally thick, elongated, and mycotic. Stage 1 pressure ulcer noted left lateral malleolus. Skin: warm, no bruises. Neurological:Normal cognition and motor skills. Non-focal - Assessment and Plan (1) Gangrene Current Visit: Yes Status: Ruled-out Assessment and Plan: XR shows ?possible gas gangrene of L 5th toe pt is not septic, no fever/chills, no leukocytosis, or no hemodynamic instability Podiatry input appreciated, low suspicion for acute processes. Outpatient vascular surgery follow up for PAD. Awaiting pre-cert for placement. (2) PAD (peripheral artery disease) Current Visit: Yes Status: Chronic Assessment and Plan: Active smoker, presented with what appears to be claudication YINKA showed right PT- 0.79 AND DP- 0.85 and left PT- 0.76 and DP- 0.87, consistent with PAD XR report as above, low suspicion for gangrene per podiatry Was given IV Vanc/cefepime in the ED. Continue to monitor off abx. started ASA and continue statin. Outpatient vascular surgery follow up. (3) Lung cancer Current Visit: Yes Status: Chronic Assessment and Plan: s/p radiotherapy, nodule has decreased in size since then outpatient follow up (4) Diabetes Current Visit: Yes Status: Chronic Assessment and Plan: On metformin at home. Hold Sliding scale coverage ADA diet (5) HLD (hyperlipidemia) Current Visit: Yes Status: Chronic Assessment and Plan: continue statin (6) COPD (chronic obstructive pulmonary disease) Current Visit: Yes Status: Chronic Assessment and Plan: History of COPD with active tobacco use Does not appear to be in exacerbation although CT imaging showed mucus plugging in right middle and lower lobe Continue scheduled bronchodilators, chest PT monitor off steroid and abx smoking cessation emphasized, pt is not interested (7) Anemia Current Visit: Yes Status: Chronic Assessment and Plan: Hb trended down to 7.9, part of which could be dilutional from IVF she initially received No signs and symptoms of active GI bleeding. Patient remained hemodynamically stable IV Iron, PO B12 supplementation GI consulted and s/p EGD/colonoscopy EGD showed Esophagitis and hernia. Colonoscopy showed diverticulosis. 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 Patient's past medical history includes squamous cell carcinoma left lung s/p radiation therapy 2017, osteoporosis, DM, hyperlipidemeia, and COPD. She reports the weakness and pain with ambulation started a couple of days before she came to the emergency room. Her daughter, who is present at the bedside, reports it has been going on for several weeks and states the patient ambulates very little at home. Patient is new to podiatry and podiatry was consulted due to possible gas gangrene left #5. Patient reports the pain is located left foot and is only noted with ambulation and tactile stimulation. Walking makes it worse and rest makes it better. She denies any history of the same. She is a 1 to 1.5 ppd smoker and states she has smoked since she was 12 years old. Patient denies having any desire to quit smoking. She denies any alcohol or illicit drug use. She denies any chest pain, shortness of breath, or calf pain. She denies any fever, nausea, vomiting, or diarrhea. - Time Spent with Patient Total time spent is greater than 50% in coordination of care (as documented) at patient's floor/unit and/or counseling patient: less than 15 minutes Plan of Care Discussed with: patient Internal Medicine: Result - Labs CBC & Chem 7: 07/04/18 04:14 07/04/18 04:14 - ABG Interpretation ABG results: PT/INR, D-dimer PT 10.7 Seconds (9.4-12.1) 07/02/18 05:34 D-Dimer 1276 ng/mLFEU (0-500) H 07/01/18 13:57 Consult Discharge Plan - Plan Referrals: Brody Gorman DO [Primary Care Provider] - (3) Lung cancer Qualifiers: Laterality: left Lung location: upper lobe of lung Qualified Code(s): C34.12 - Malignant neoplasm of upper lobe, left bronchus or lung (4) Diabetes Qualifiers: Diabetes mellitus type: type 2 Diabetes mellitus intermediate accountant insulin use: without intermediate accountant use Diabetes mellitus complication status: with unspecified complications Qualified Code(s): E11.8 - Type 2 diabetes mellitus with unspecified complications (5) HLD (hyperlipidemia) Qualifiers: Hyperlipidemia type: unspecified Qualified Code(s): E78.5 - Hyperlipidemia, unspecified (6) COPD (chronic obstructive pulmonary disease) Qualifiers: COPD type: unspecified COPD Qualified Code(s): J44.9 - Chronic obstructive pulmonary disease, unspecified (7) Anemia Qualifiers: Anemia type: iron deficiency Iron deficiency anemia type: unspecified iron deficiency Qualified Code(s): D50.9 - Iron deficiency anemia, unspecified
--- NOTE | 2018-07-05 21:17 | Electrocardiograph Report ---
[address] [place] [address] Test Date: 2018-07-04 Pat Name: Fabienne Mesa Department: 115 Room: 3A45 Gender: F Delivery Aide: : 1945 Requested By: Josué Chester Order Number: [id number] Reading MD: Norma Zamarripa Measurements Intervals [place] Rate: 123 P: 73 ID: [id number] QRS: 31 QRSD: 76 T: 41 QT: 300 QTc: 373 Interpretive Statements SINUS TACHYCARDIA LOW QRS VOLTAGE IN EXTREMITY LEADS ABNORMAL RHYTHM ECG Electronically Signed On 07-05-2018 21:15:54 EST by Norma Zamarripa
[2018-07-06] MEDS: Ipratropium/Albuterol Neb 3 ML IH SCH ×4 (04:19→16:15)
[2018-07-06] MEDS: Budesonide/Formoterol 160/4.5 1 PUFF INH IH SCH (07:33)
--- NOTE | 2018-07-06 09:13 | Discharge Summary ---
- NOTES TO OUTPATIENT PROVIDER Notes to Outpatient Provider: Needs Vascular Surgery follow up for PAD Orders not resulted at time of discharge: Pending orders 07/01/18 14:00 Culture,Blood [BC] Stat 07/04/18 14:34 Surgical Pathology [PTH] Routine Date of Encounter: 07/06/18 Time of Encounter: 09:11 - Discharge Diagnosis (1) Gangrene Priority: Secondary Status: Ruled-out (2) PAD (peripheral artery disease) Priority: Primary Status: Chronic (3) Lung cancer Priority: Secondary Status: Chronic Qualifiers: Laterality: left Lung location: upper lobe of lung Qualified Code(s): C34.12 - Malignant neoplasm of upper lobe, left bronchus or lung (4) Diabetes Priority: Secondary Status: Chronic Qualifiers: Diabetes mellitus type: type 2 Diabetes mellitus 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 Diabetes mellitus complication status: with circulatory complication Diabetes mellitus complication detail: with peripheral angiopathy without gangrene Qualified Code(s): E11.51 - Type 2 diabetes mellitus with diabetic peripheral angiopathy without gangrene (5) HLD (hyperlipidemia) Priority: Secondary Status: Chronic Qualifiers: Hyperlipidemia type: unspecified Qualified Code(s): E78.5 - Hyperlipidemia, unspecified (6) COPD (chronic obstructive pulmonary disease) Priority: Secondary Status: Chronic Qualifiers: COPD type: unspecified COPD Qualified Code(s): J44.9 - Chronic obstructive pulmonary disease, unspecified (7) B12 deficiency Priority: Secondary Status: Chronic (8) Iron deficiency anemia Priority: Secondary Status: Chronic Qualifiers: Iron deficiency anemia type: unspecified iron deficiency Qualified Code(s): D50.9 - Iron deficiency anemia, unspecified Hospital course: Ms. Mesa is a 73 year old female who presented to the emergency department with difficulty ambulating. She reported pain in her legs when walking and improved with rest. Patient was admitted and evaluated for peripheral vascular disease and she did have mildly reduced ABIs. There is also concern for gangrene however she was evaluated by podiatry who did not feel that she had an active infection. Patient improved during her hospitalization although she did report that she still had mild leg pain with activity. Patient will be discharged to [facility] for rehabilitation. Patient will require outpatient podiatry and vascular surgery follow up Discharge discussed with: patient - Time Spent with Patient Total time spent providing and/or coordinating discharge services: - Discharge Medications Prescriptions: New Aspirin Enteric Coated [Aspirin EC] 81 mg PO DAILY tablet. Cyanogavibalamin (B-12) [Vitamin B12] 1,000 mcg PO DAILY tablet Continue metFORMIN [Glucophage] 1,000 mg PO DAILY Fluticasone/Vilanterol [Breo Ellipta 100-25 Mcg INH] 1 each IH DAILY Atorvastatin Calcium [Lipitor] 20 mg PO DAILY Alendronate Sodium [Fosamax] 35 mg PO TH Albuterol Sulfate [Albuterol Inhaler] 2 puff IH Q4H PRN PRN Reason: Shortness Of Breath Diclofenac Sodium [Diclofenac Sodium ER] 100 mg PO DAILY Changed HYDROcodone/Acet 5/325 mg [[place] 5-325 mg] 1 tab PO BID PRN 7 Days #14 tablet PRN Reason: Pain Discontinued HYDROcodone/Acet 5/325 mg 2.5 mg PO 08,16 Home Medications: Albuterol Sulfate [Albuterol Inhaler] 2 puff IH Q4H PRN 07/01/18 [History] Alendronate Sodium [Fosamax] 35 mg PO TH 07/01/18 [History] Atorvastatin Calcium [Lipitor] 20 mg PO DAILY 07/01/18 [History] Diclofenac Sodium [Diclofenac Sodium ER] 100 mg PO DAILY 07/01/18 [History] Fluticasone/Vilanterol [Breo Ellipta 100-25 Mcg INH] 1 each IH DAILY 07/01/18 [History] metFORMIN [Glucophage] 1,000 mg PO DAILY 07/01/18 [History] Aspirin Enteric Coated [Aspirin EC] 81 mg PO DAILY tablet. 07/06/18 [Rx] Cyanocobalamin (B-12) [Vitamin B12] 1,000 mcg PO DAILY tablet 07/06/18 [Rx] HYDROcodone/Acet 5/325 mg [[place] 5-325 mg] 1 tab PO BID PRN 7 Days #14 tablet 0 07/06/18 [Rx] Allergies/Adverse Reactions: Allergy/AdvReac Type Severity Reaction Status Date / Time No Known Allergies Allergy Verified 03/08/18 10:03 Date of admission: 07/01/18 17:27 Primary care physician: Brody Paulson Colopy Consults: 07/01/18 18:00 Consult to Respiratory Therapy [CONS] Routine Reason for Consult: for chest PT, mucus plugging in R ML and LL Call Completed: No 07/01/18 18:50 Consult to [employer] Counterperson [CONS] Routine Reason for SW Consult: patient will need home health on discharge to recent decline in health 07/02/18 07:12 Consult to Podiatry [CONS] Routine Consulting Provider: [facility] Reason for Consult: ?L 5th toe gas gangrene Call Completed: Yes 07/02/18 12:18 Consult to Occupational Therapy [CONS] Routine Comment: Evaluate, develop and implement POC Reason for Consult: deconditioning Does patient have active BEDREST order?: No Is patient medically & hemodynamically stable?: Yes Consult to Physical Therapy [CONS] Routine Comment: Evaluate, develop and implement POC Reason for Consult: deconditioning Does patient have active BEDREST order?: No Is patient medically & hemodynamically stable?: Yes 07/03/18 10:00 Consult to Gastroenterology [CONS] Routine Consulting Provider: Gastroenterology Ruth Reason for Consult: iron def anemia Call Completed: Yes Discharging clinician: Neeraj Gutierrez Anticipated date of discharge: 07/06/18 - Constitutional Vitals: Temp Pulse Resp BP Pulse Ox 97.4 F L 104 16 120/66 95 07/06/18 06:31 07/06/18 06:31 07/06/18 07:33 07/06/18 06:31 07/06/18 07:33 General appearance: Present: A&O X 3, pleasant, no acute distress Exam: . - Respiratory Respiratory exam: Present: CTAB - Cardiovascular Cardiovascular exam: Present: RRR. Absent: gallop, rubs, systolic murmur - Patient Status Disposition: Transfer SNF Condition: Good Functional capacity at discharge: uses cane/walker Overall status at discharge: patient is progressing back to baseline - Discharge Instructions Follow Up With: Brody Gorman DO [Primary Care Provider] - (1 week) Houston Henderson MD [Partnered Physician] - (4-6 weeks) Dean Burks DPM [Partnered Physician] - (2-4 weeks) Additional Instructions: Please follow-up with your primary care physician as scheduled. Please follow-up with vascular surgery and podiatry as scheduled. Please participate in rehabilitation as instructed. Please resume your home medications. Please return for any worsening symptoms. - Diet and Activity Activity: as per physical therapy Diet: diabetic diet
[2018-07-06] MEDS: Cyanocobalamin (B-12) 1,000 MCG TABLET PO SCH (09:14)
[2018-07-06] MEDS: Aspirin Enteric Coated 81 MG Tablet PO SCH (09:14)
[2018-07-06] MEDS: *HR* HYDROcodone/Acet 5/325 mg TABLET PO SCH ×2 (09:15→16:47)
[2018-07-06] MEDS: Insulin LISPRO 300 UNITS/3 ML VIAL SQ SCH ×3 (09:17→16:00)
[2018-07-06] MEDS: Sodium Ferric Gluconat/Sucrose 125 MG in 0.9 % Sodium Chloride 100 ML IVPB SCH (09:24)
--- NOTE | 2018-07-06 09:24 | Physician Discharge Referral ---
ExtendedCare Referral Info Provider in Charge after Transfer: PCP Institutional Level of Care: Skilled - Diagnosis (1) Gangrene Priority: Secondary Status: Ruled-out (2) PAD (peripheral artery disease) Priority: Primary Status: Chronic (3) Lung cancer Priority: Secondary Status: Chronic (4) Diabetes Priority: Secondary Status: Chronic (5) HLD (hyperlipidemia) Priority: Secondary Status: Chronic (6) COPD (chronic obstructive pulmonary disease) Priority: Secondary Status: Chronic (7) B12 deficiency Priority: Secondary Status: Chronic (8) Iron deficiency anemia Priority: Secondary Status: Chronic Prognosis: Fair Aware of Diagnosis: Patient Aware of Prognosis: Patient - Transfer Medications Prescriptions: HYDROcodone/Acet 5/325 mg [[place] 5-325 mg] 1 tab PO BID PRN 7 Days #14 tablet PRN Reason: Pain Home Medications: Albuterol Sulfate [Albuterol Inhaler] 2 puff IH Q4H PRN 07/01/18 [History] Alendronate Sodium [Fosamax] 35 mg PO TH 07/01/18 [History] Atorvastatin Calcium [Lipitor] 20 mg PO DAILY 07/01/18 [History] Diclofenac Sodium [Diclofenac Sodium ER] 100 mg PO DAILY 07/01/18 [History] Fluticasone/Vilanterol [Breo Ellipta 100-25 Mcg INH] 1 each IH DAILY 07/01/18 [History] metFORMIN [Glucophage] 1,000 mg PO DAILY 07/01/18 [History] Aspirin Enteric Coated [Aspirin EC] 81 mg PO DAILY tablet. 07/06/18 [Rx] Cyanocobalamin (B-12) [Vitamin B12] 1,000 mcg PO DAILY tablet 07/06/18 [Rx] HYDROcodone/Acet 5/325 mg [[place] 5-325 mg] 1 tab PO BID PRN 7 Days #14 tablet 07/06/18 [Rx] Allergies/Adverse Reactions: Allergy/AdvReac Type Severity Reaction Status Date / Time No Known Allergies Allergy Verified 03/08/18 10:03 - Respiratory Orders Oxygen / L per min (2) Smoking Cessation: Smoking cessation has been advised. For more information, call the [employer] Quit Line at 8-892-DOTJ-NOW. - Ancillary Orders May use pressure relief devices daily prn - Advance Directives Code Status: Full Code - Mobility Orders Ambulate (per PT) - Rehabiliation Orders Rehab Potential: Fair Rehab Orders: ROM Exercises, Evaluation for Physical Therapy, Evaluation for Occupational Therapy - Treatments Skin tear care topically daily PRN per policy, May check for fecal impaction rectally daily PRN, Fleet enema rectally every other day PRN cleansing purposes - Diet Orders No Concentrated Sweets CERTIFICATION: I certify that the transfer of the above named patient to an Extended Care Facility is necessary for the continuing treatment of the diagnosis listed. The above information is true and accurate reflection of patient's current condition. Confidential - Redisclosure prohibited without a patient's written consent.
[2018-07-06 15:07] VITALS: BP 131/62
== END 2018-07-06 17:09 ==
LOC: EMEROOARM 12:35 → 3ANU 12:35 → SUATTDRO 17:27 → 3ANU 18:22
PROVIDERS: ADMIT Hospitalist; ATTEND Internal Medicine
PROC: ENDOEBX (2018-07-04 13:35)